=== PATIENT | male | born 1960 | race Caucasian/White ===

== ENCOUNTER 2025-06-20 08:22 | Outpatient (AMB) | payer BC, SELFPAY ==
--- NOTE | 2025-06-20 08:26 | MHC.OFFVIS ---
Intake Visit Reasons: 6 months Allergies No Known Allergies Allergy (Verified 06/20/25 08:34) Medication List - Last Reconciled 06/20/25 by Deepti Palumbo CNP atorvastatin 10 mg PO DAILY cyclobenzaprine 5 mg PO BID PRN diclofenac sodium 75 mg PO BID PRN lisinopril 10 mg PO DAILY HPI Comments Details: He was doing okay. Neck pain was okay with diclofenac and cyclobenzaprine as needed. Few episodes of brief weakness in both arms over the last 3 months, none in the last 2-3 weeks, occasionally ends with some discomfort in neck. No specific triggers. Occasional numbness in hands, but no pain.?Walking about 30 minutes/day. Feet and toes stinging was okay. Bought a condo in [place] and will be going there in 08/2025 for 6 months. Had episode of severe left neck pain at the end of 05/2024, better after prednisone and did some PT. Had MRI with degen disc disease. Dr Cooper suggested no surgery. Slight neck restriction. Doing neck exercises. Walks, playing pickleball. Right elbow and arm soreness since fall in Nov 2017. He has a history of cervical disc disease in 1997 with a C6 radiculopathy. [facility] Medical History (Updated 06/20/25 @ 08:33 by Deepti Palumbo CNP) Osteoarthritis Cervical disc disease Acquired spondylolisthesis Cervicalgia Carpal tunnel syndrome Review of Systems Const Denies chills, Denies daytime sleepiness, Denies difficulty sleeping, Denies fatigue, Denies fever(s), Denies frequent falls, Denies headache(s), Denies increased appetite, Denies poor appetite, Denies snoring, Denies weakness, Denies weight gain and Denies weight loss Eyes Denies loss of vision ENT Denies vertigo, Denies dizziness, Denies headache(s) and Reports neck pain Card Denies chest pain at rest, Denies chest pain with activity, Denies syncope, Denies leg edema, Denies palpitations, Denies dyspnea and Denies dyspnea on exertion Resp Denies cough, Denies dyspnea, Denies dyspnea on exertion and Denies snoring GI Denies abdominal pain, Denies constipation, Denies heartburn, Denies diarrhea and Denies nausea Denies urinary frequency, Denies urinary incontinence and Denies urinary urgency Musc Denies abnormal gait, Denies back pain, Denies myalgias, Reports arthralgias, Reports neck pain, Reports numbness and Reports tingling Neuro Denies abnormal gait, Denies vertigo, Denies dizziness, Denies syncope, Denies frequent falls, Denies headache(s), Denies lack of coordination, Denies loss of vision, Denies memory loss, Reports numbness, Denies Other visual disturbances, Denies restless legs, Denies seizure-like activity, Reports tingling, Denies paresthesias, Denies tremor(s) and Denies weakness Psych Denies anxiety, Denies depression, Denies auditory hallucinations, Denies memory loss and Denies visual hallucinations Endo Denies fatigue and Denies palpitations Physical Exam Const Other: General Appearance:? normal, in no acute distress. Heart:? S1, S2 normal, no murmurs. Lungs:? clear anteriorly and posteriorly. Musculoskeletal:? normal. Extremities:? no edema. Psych:? alert, oriented, cognitive function intact, cooperative with exam. Neuro Other: Abnormal Neurological Findings: 5-/5 L deltoid weakness. Mild tremor on sustained posture. Mental Status: alert and oriented X 3. Normal attention, orientation, memory, and affect. Cranial Nerves: Pupils are equal, round, and reactive to light. External ocular muscles are intact. Visual brian are full, no ptosis. Face is symmetrical, no facial weakness or droop. Facial sensations are normal. Tongue protrudes in midline. Palate elevates symmetrically. Shoulder shrugging is normal Motor Examination: As above, otherwise normal muscle tone, bulk and strength. No atrophy or fasciculations. No drift of the extended upper extremities. DTR 2+. Plantars are flexor. Sensory Exam: Normal light touch, temperature, pinprick, vibration, and joint-position sensations. Rhomberg sign is absent. Coordination: No ataxia. No titubation. Yvzype-qc-rhei, fvtw-bwzz-cpvo test, and rapid alternating movements were normal. Gait Exam: Within normal limits. Cerebellar Signs: Mvwmqr-jo-htmy and hfgd-ht-rdzq is normal. No dysdiadochokinesia. Extrapyramidal System: Tremor as above. No rigidity with normal facial expressions. No bradykinesia. No bradyphrenia. Normal arm swing and posture. No propulsion or retropulsion. Speech: Normal. No dysphasia or dysarthria. Results Reviewed Results Reviewed: 3/28/22 NCV/EMG UE Mild bilateral Carpal tunnel syndrome, right worse than left. Right is slightly worse and left is unchanged since last NCV/EMG done in 2014. Normal EMG in the right C5-T1 innervated muscles. Assessment & Plan Assessment & Plan (1) Cervical disc disease: Code(s): M50.90 - Cervical disc disorder, unspecified, unspecified cervical region Category: Medical Plan: Continue diclofenac sodium 75mg 1 tablet as needed with food twice a day for pain. Continue cyclobenzaprine 5mg 1 tablet as needed twice a day for muscle spasms/pain. MRI C-spine ordered. Lorazepam 1mg 1 tablet two hours before MRI, may repeat at time of test as needed #2 for 1 day. (2) Carpal tunnel syndrome: Code(s): G56.00 - Carpal tunnel syndrome, unspecified upper limb Category: Medical Qualifiers: Laterality: bilateral Qualified Code(s): G56.03 - Carpal tunnel syndrome, bilateral upper limbs (3) Cervicalgia: Code(s): M54.2 - Cervicalgia Category: Medical (4) Acquired spondylolisthesis: Code(s): M43.10 - Spondylolisthesis, site unspecified Category: Medical (5) Osteoarthritis: Code(s): M19.90 - Unspecified osteoarthritis, unspecified site Category: Medical Qualifiers: Osteoarthritis location: unspecified site Osteoarthritis type: unspecified Qualified Code(s): M19.90 - Unspecified osteoarthritis, unspecified site Plan . Orders: Orders MR cervical spine wo con Today M50.90 - Cervical disc disorder, unspecified, unspecified cervical region Medications: New lorazepam 1 mg orally 2 hours before test, may repeat at time of test if needed; 2 tabs 0RF Coding Level of Care Code Est Pt Level 4 (08551) Diagnoses Cervical disc disease M50.90 Bilateral carpal tunnel syndrome G56.03 Laterality: bilateral Cervicalgia M54.2 Acquired spondylolisthesis M43.10 Osteoarthritis, unspecified osteoarthritis type, unspecified site M19.90 Osteoarthritis location: unspecified site Osteoarthritis type: unspecified
--- OUTSIDE RECORDS SUMMARY | 2025-06-20 09:21 | XMS_ITS | Clinical Summary ---
Author Organization [facility] Address [address] [place] [id number] Care Team Providers Care Load Blocker Name Role Phone Long Hayes MD Primary Care Provider [phone] Surgical History Surgery Date Site/Laterality Comments COLONOSCOPY PROCEDURE:COLONOSCOPY KNEE SURGERY Bilateral PROCEDURE:KNEE SURGERY;COMMENT:SCOPE HERNIA REPAIR PROCEDURE:HERNIA REPAIR;COMMENT:SCROTAL LIPOMA RESECTION PROCEDURE:LIPOMA RESECTION;COMMENT:ARM TONSILLECTOMY PROCEDURE:TONSILLECTOMY TOTAL KNEE ARTHROPLASTY 11/15/2019 Right PROCEDURE:TOTAL KNEE ARTHROPLASTY;COMMENT:Procedure: REPLACEMENT TOTAL KNEE; Surgeon: Mike Rangel MD; Location: [facility] ([facility]); Service: Orthopedics; Laterality: Right; JOINT REPLACEMENT PROCEDURE:JOINT REPLACEMENT WRIST SURGERY PROCEDURE:WRIST SURGERY;COMMENT:pt denies wrist surgery (2021) TOTAL KNEE ARTHROPLASTY 02/11/2022 Left PROCEDURE:TOTAL KNEE ARTHROPLASTY;COMMENT:Procedure: REPLACEMENT TOTAL KNEE; Surgeon: Mike Rangel MD; Location: [facility] ([facility]); Service: Orthopedics; Laterality: Left; Medical History Medical History Date Comments Leukopenia DX:Leukopenia Osteoarthritis DX:Osteoarthriti s Peripheral neuropathy DX:Periphe ral neuropathy;COMMENT:CARPAL TUNNEL BILAT HANDS H/O degenerative disc disease DX :H/O degenerative disc disease Family History Medical History Relation Name Comments Cancer Brother 1 2 RENAL Heart disease Brother 1 2 Hyperlipidemia Brother 1 2 Early Brother 2 2 Cancer Mother BREAST Heart disease Mother Hypertension Mother Stroke Mother Down syndrome Sister 1 Hearing loss Sister 1 Hepatitis Sister 1 Cancer Sister 2 3 BREAST Hyperlipidemia Sister 2 3 Relation Name Status Comments Brother 1 2 Alive Brother 2 2 Father (Age 74) HYDROENCEH PHALITIS Mother (Age 85) STROKE Sister 1 (Age 40) DOWN SYNDR OME Sister 2 3 Alive Social History Tobacco Use Types Packs/Day Years Used Date Smoking Tobacco: Never Smokeless Tobacco: Never Alcohol Use Standard Drinks/Week Comments Yes 9 (1 standard drink = 0.6 oz pur e alcohol) Sex and Gender Information Value Date Recorded Sex Assigned at Not on file Legal Sex Male 9:30 PM EST Gender Identity Not on file Sexual Orientation Not on file Obstetrics History Last Filed Vital Signs Vital Sign Reading Time Taken Comments Blood Pressure 135/82 02/01/2022 9:51 AM EDT Sitting Left arm Pulse 72 02/01/2022 9:51 AM EDT Temperature - - Respiratory Rate - - Oxygen Saturation - - Inhaled Oxygen Concentration - - Weight 104 kg (229 lb) 02/01/2022 9:51 AM EDT Height 181 cm (5' 11.26 ) 02/01/2022 9: 51 AM EDT Body Mass Index 31.71 02/01/2022 9:51 AM EDT Plan of Treatment Health Maintenance Due Date Last Done Comments DTaP,Tdap,and Td Vaccines (1 - Tdap) 1978 Pneumococcal Vaccine: 50+ Years (1 of 1 - PCV) 2009 Zoster Vaccines (1 of 2) 2009 Abdominal Aortic Aneurysm (AAA) Screen 09/16/2022 Cholesterol Screening (Lipid Panel) 09/16/2022 Colorectal Cancer Screening: Colonoscopy 09/16/2022 Hepatitis C Screening 09/16/2022 Social Influencers of Health Screening 09/16/2022 Falls Risk Assessment 2024 Depression Screening 10/10/2024 COVID-19 Vaccine ( season) 2025 09/04/2024, 08/28/2021, 01/12/2021, Additional history exists Influenza Vaccine (#1) 2025 RSV Immunization Adult Patients (1 - 1-dose 75+ series) 2034 HIB Vaccines Aged Out No longer eligi ble based on patient's age to complete this topic HPV Vaccines Aged Out No longer eligi ble based on patient's age to complete this topic Hepatitis A Vaccines Aged Out No long er eligible based on patient's age to complete this topic Hepatitis B Vaccines Aged Out No long er eligible based on patient's age to complete this topic IPV Vaccines Aged Out No longer eligi ble based on patient's age to complete this topic MMR Vaccines Aged Out No longer eligi ble based on patient's age to complete this topic Meningococcal ACWY Vaccine Aged Out N o longer eligible based on patient's age to complete this topic Meningococcal B Vaccine Aged Out No l onger eligible based on patient's age to complete this topic RSV Immunization Patients Under 20 months Aged Out No longer eligible based on patient's age to complete this topic Varicella Vaccines Aged Out No longer eligible based on patient's age to complete this topic Medical Devices Implanted Type Area [place] Device Identifier Shelf Expiration Date Model / Serial / Lot Cement Simplex P Radiopaque Full Dose Bone 10 Pack - [id number] Implanted:Qty: 1 on 11/15/2019 by Mike Rangel MD Right: Knee [employer] 07/09/2021 6191-1-010 / / [id number] Cement Simplex P Radiopaque Full Dose Bone 10 Pack - [id number] Implanted:Qty: 1 on 11/15/2019 by Mike Rangel MD Right: Knee [employer] 07/09/2021 6191-1-010 / / [id number] Component Triathlon 7 Posterior Stabilized Cemented Femoral - [id number] Implanted:Qty: 1 on 11/15/2019 by Mike Rangel MD Right: Knee [employer] 02/06/2024 5515-F-702 / / [id number] Baseplate Triathlon 8 Primary Cemented Tibial Knee - [id number] Implanted:Qty: 1 on 11/15/2019 by Mike Rangel MD Right: Knee [employer] 10/31/2023 5520-B-800 / / [id number] Insert Triathlon 8 13mm Posterior Stabilized Bearing X3 - [id number] Implanted:Qty: 1 on 11/15/2019 by Mike Rangel MD Right: Knee [employer] 10/17/2022 5532-G-813 / / [id number] Component Triathlon 10mm 35mm Symmetric X3 Ptlar Knee - [id number] Implanted:Qty: 1 on 11/15/2019 by Mike Rangel MD Right: Knee [employer] 12/24/2023 5551-G-350 / / [id number] Peg Triathlon Modular Fix Distal Femur Knee - [id number] Implanted:Qty: 1 on 11/15/2019 by Mike Rangel MD Right: Knee [employer] 07/01/2024 5575-X-000 / / [id number] Knee Fem Ps Trthln Sz 7 Lt Stry-Howm 7267-[id number] Implanted:Qty: 1 on 02/11/2022 by Mike Rangel MD Left: Knee [employer] [id number] 10/16/2023 5515-F-701 / / [id number] Knee Tib Base Plt Trthln Sz 8 Stry-Howm 6040-[id number]-[id number] Implanted:Qty: 1 on 02/11/2022 by Mike Rangel MD Left: Knee [employer] [id number] 06/09/2026 5520-B-800 / / [id number] Knee Tib Insrt Ps X3 8x13 Stry-Howm 6142-E-[id number] Implanted:Qty: 1 on 02/11/2022 by Mike Rangel MD Left: Knee [employer] [id number] 10/24/2022 5532-G-813 / / [id number] Knee Pat Asymmetric 18j16as Stry-Howm 5133-P-880-E-2 [id number] Implanted:Qty: 1 on 02/11/2022 by Mike Rangel MD Left: Knee [employer] [id number] 09/27/2026 5551-G-350 -E / / [id number] Peg Fix Femoral Distal Stry-Howm 7082-C-[id number] 704 Implanted:Qty: 1 on 02/11/2022 by Mike Rangel MD Left: Knee [employer] [id number] 05/18/2026 5575-X-000 / / [id number] Cement Bone Surg Simplex Radiopq Stry-Howm [id number] 092 Implanted:Qty: 1 on 02/11/2022 by Mike Rangel MD Left: Knee [employer] 05/09/2024 6191-1-010 / / Description:LOT # [id number] Cement Bone Surg Simplex Radiopq Stry-How [id number] 092 Implanted:Qty: 1 on 02/11/2022 by Mike Rangel MD Left: Knee [employer] 05/09/2024 6191-1-010 / / Description:LOT # [id number] Care Teams Load Blocker Relationship Specialty Start Date End Date Long Hayes MD [address] [place] [address] PCP - General Internal Medicine 01/03/18
--- OUTSIDE RECORDS SUMMARY | 2025-06-20 09:21 | XMS_ITS | Clinical Summary ---
Author Organization [facility] Address [address] [place] [id number] Phone Care Team Providers Care Transliterator Name Role Phone Unavailable Primary Care Provider Unavailabl e Social History Tobacco Use Types Packs/Day Years Used Date Smoking Tobacco: Never Assessed Education Answer Date Recorded Are you interested in more education? Not on sri e 02/05/2023 Are you concerned about learning? Not on file 02/05/2023 No 02/05/2023 No 02/05/2023 Digital Access Answer Date Recorded No 03/08/2023 No 03/08/2023 Reliable internet access at home? Not on file 03/08/2023 Device with a working camera? Not on file Sex and Gender Information Value Date Recorded Sex Assigned at Not on file Legal Sex Male 3:37 PM EDT Gender Identity Not on file Sexual Orientation Not on file Plan of Treatment Not on file Medical Devices Not on file Additional Source Comments The information contained in this document represents components of the legal health record. It is not the complete legal health record.[facility]
--- OUTSIDE RECORDS SUMMARY | 2025-06-20 09:21 | XMS_ITS | Clinical Summary ---
Author Organization [facility] Address [address] [place], [place] [id number] Care Team Providers Care Manager Managed Care Name Role Phone Long Hayes MD Primary Care Provider [phone] Allergies Active Allergy Reactions Criticality Noted Date Comments Pollen Extract Low 12/16/2021 Tree pollen Medications Medication Sig Dispensed Refills Start Date End Date Status acetaminophen (TYLENOL EXTRA STRENGTH) 500 MG tablet Take 2 tablets (1,000 mg total) by mouth every 8 (eight) hours. 90 tablet 0 11/16/2019 Active amoxicillin (AMOXIL) 500 MG tablet Take 4 tabs 1 hour prior to dental appointment 20 tablet 3 12/16/2021 Active Multiple Vitamins-Minerals (Centrum Silver Adult 50+) TABS Take by mouth daily. 0 Active aspirin EC 81 MG EC tablet Take 1 tablet (81 mg total) by mouth 2 (two) times a day after meals. 84 tablet 0 02/12/2022 Active meloxicam (MOBIC) 15 MG tablet Take 1 tablet (15 mg total) by mouth daily. 30 tablet 0 02/12/2022 Active methocarbamol (ROBAXIN) 750 MG tablet Take 1 tablet (750 mg total) by mouth every 6 (six) hours as needed. 56 tablet 0 02/12/2022 Active oxyCODONE (ROXICODONE) 5 MG immediate release tablet Take 1 tablet (5 mg total) by mouth every 4 (four) hours as needed. 40 tablet 0 02/12/2022 Active senna-docusate (PERICOLACE) 8.6-50 MG Take 1 tablet by mouth 2 (two) times a day. 14 tablet 0 02/12/2022 Active Active Problems Problem Noted Date Diagnosed Date Right sided sciatica 07/22/2020 Arthritis of right knee 11/15/2019 Arthritis of knee, right 07/24/2019 Immunizations Name Administration Dates Next Due Covid-19 (Moderna 12+) 100mcg/0.5mL dosage 08/28,01/12/2021,12/15/2020 Family History Medical History Relation Name Comments [...] Information Value Date Recorded Sex Assigned at Male 10/19/2019 1:56 PM EST Gender Identity Male 10/19/2019 1:56 PM EST Sexual Orientation Straight 11/15/2019 6: 26 AM EST Job Start Date Occupation Industry Not on file Not on file Not on file Last Filed Vital Signs Vital Sign Reading Time Taken Comments Blood Pressure 124/75 02/12/2022 7:34 AM EDT Pulse 96 02/12/2022 7:34 AM EDT Temperature 36.6 C (97.8 F) 02/12/2022 7:34 AM EDT Respiratory Rate 18 02/12/2022 7:34 AM EDT Oxygen Saturation 96% 02/12/2022 7:34 AM EDT Inhaled Oxygen Concentration - - Weight 103.4 kg (228 lb) 02/11/2022 9:28 AM EDT Height 182.9 cm (6') 02/11/2022 9:28 AM EDT Body Mass Index 30.92 02/11/2022 9:28 AM EDT Plan of Treatment Health Maintenance Due Date Last Done Comments Hepatitis C Screening 1959 Depression Screening 1971 BMI Counseling 1977 Preventative Health Evaluation 1977 DTap / Tdap / Td (1 - Tdap) 1978 Colon Cancer Screening (Colonoscopy) 2004 Shingrix-Zoster Vaccine (1 o f 2) 2009 Fall Risk Assessment 2024 Pneumococcal Vaccine (1 of 1 - PCV) 2024 COVID-19 Vaccine (4 - 2024-2 6 season) 2025 08/28/2021, 01/12/2021, 12/15/2020 Influenza Vaccine (#1) 2025 RSV Adult > 60+ Yrs or (1 - 1-dose 75+ series) 2034 Hepatitis B Vaccines Aged Out No long er eligible based on patient's age to complete this topic RSV Ped < 20 months Aged Out No longe r eligible based on patient's age to complete this topic Medical Devices Implanted Type Area [place] Device Identifier Shelf Expiration Date Model / Serial / Lot Cement Simplex P Radiopaque Full Dose Bone 10 Pack - [id number] - [id number] Implanted:Qty: 1 on 11/15/2019 by Mike Rangel [place] [facility] Right: Knee [employer] 07/09/2021 6191-1-010 / / [id number] Cement Simplex P Radiopaque Full Dose Bone 10 Pack - 215765 - [id number] Implanted:Qty: 1 on 11/15/2019 by Mike Rangel MD at [facility] Right: Knee [employer] 07/09/2021 6191-1-010 / / [id number] Component Triathlon 7 Posterior Stabilized Cemented Femoral - 317242 - [id number] Implanted:Qty: 1 on 11/15/2019 by Mike Rangel MD at [facility] Right: Knee [employer] 02/06/2024 5515-F-702 / / [id number] Baseplate Triathlon 8 Primary Cemented Tibial Knee - 386264 - [id number] Implanted:Qty: 1 on 11/15/2019 by Mike Rangel MD at [facility] Right: Knee [employer] 10/31/2023 5520-B-800 / / [id number] Insert Triathlon 8 13mm Posterior Stabilized Bearing X3 - [id number] - [id number] Implanted:Qty: 1 on 11/15/2019 by Mike Rangel MD at [facility] Right: Knee [employer] 10/17/2022 5532-G-813 / / [id number] Component Triathlon 10mm 35mm Symmetric X3 Ptlar Knee - [id number] - [id number] Implanted:Qty: 1 on 11/15/2019 by Mike Rangel MD at [facility] Right: Knee [employer] 12/24/2023 5551-G-350 / / [id number] Peg Triathlon Modular Fix Distal Femur Knee - 225860 - [id number] Implanted:Qty: 1 on 11/15/2019 by Mike Rangel MD [facility] Right: Knee [employer] 07/01/2024 5575-X-000 / / [id number] Knee Fem Ps Trthln Sz 7 Lt Stry-Howm 5084-K-[id number] 743 - [id number] Implanted:Qty: 1 on 02/11/2022 by Mike Rangel MD at [facility] Left: Knee [employer] [id number] 10/16/2023 5515-F-701 / / [id number] Knee Tib Base Plt Trthln Sz 8 Stry-Howm 4005-W-588-631 519 - [id number] Implanted:Qty: 1 on 02/11/2022 by Mike Rangel MD at [facility] Left: Knee [employer] [id number] 06/09/2026 5520-B-800 / / [id number] Knee Tib Insrt Ps X3 8x13 Stry-Howm 3077-Y-[id number] 545 - [id number] Implanted:Qty: 1 on 02/11/2022 by Mike Rangel MD at [facility] Left: Knee [employer] [id number] 10/24/2022 5532-G-813 / / [id number] Knee Pat Asymmetric [id number] Stry-Howm 9025-S-191-E-2 48551 - [id number] Implanted:Qty: 1 on 02/11/2022 by Mike Rangel MD [place] [facility] Left: Knee [employer] [id number] 09/27/2026 5551-G-350 -E / / [id number] Peg Fix Femoral Distal Stry-How 2920-T-799-547 704 - [id number] Implanted:Qty: 1 on 02/11/2022 by Mike Rangel MD [place] [facility] Left: Knee [employer] [id number] 05/18/2026 5575-X-000 / / [id number] Cement Bone Surg Simplex Radiopq Stry-How 2104-9-880-114 092 - [id number] Implanted:Qty: 1 on 02/11/2022 by Mike Rangel MD at [facility] Left: Knee [employer] 05/09/2024 6191-1-010 / / Description:LOT # [id number] Cement Bone Surg Simplex Radiopq Stry-How [id number] 092 - [id number] Implanted:Qty: 1 on 02/11/2022 by Mike Rangel MD at [facility] Left: Knee [employer] 05/09/2024 6191-1-010 / / Description:LOT # [id number] Advance Directives For more information, please contact: [phone] Latest Code Status on File Code Status Date Activated Date Inactivated Comments Full Code 02/11/2022 3:12 PM 02/12/2022 5:30 PM This co de status was ascertained in the following way: discussion with patient . Code Status History Code Status Date Activated Date Inactivated Comments Full Code 02/11/2022 9:16 AM 02/11/2022 3:12 PM This co de status was ascertained in the following way: discussion with patient . Full Code 11/15/2019 8:35 AM 11/16/2019 6:28 PM This co de status was ascertained in the following way: discussion with patient . Full Code 11/15/2019 5:17 AM 11/15/2019 8:34 AM This co de status was ascertained in the following way: discussion with patient . Care Teams Manager Managed Care Relationship Specialty Start Date End Date Long Hayes MD [address] [place] [id number] PCP - General Internal Medicine 01/03/18
== END 2025-06-20 08:55 | disposition home or self-care (01) ==
LOC: HO.HSM 08:22
PROVIDERS: PCP Internal Medicine; Referring Provider Internal Medicine; Visit Provider Registered Nurse
DX: M50.90 Cervical disc disorder, unspecified, unspecified cervical region (principal); G56.03 Carpal tunnel syndrome, bilateral upper limbs; M43.10 Spondylolisthesis, site unspecified; M19.90 Unspecified osteoarthritis, unspecified site
CPT/HCPCS: 99214

== ENCOUNTER → 2025-07-30 07:42 | Outpatient (BNV) | payer MEDICARE, SELFPAY | PROVIDERS: PCP Internal Medicine; Visit Provider Radiology Diagnostic Radiology | DX: M47.812 Spondylosis without myelopathy or radiculopathy, cervical region (principal); M40.202 Unspecified kyphosis, cervical region; S14.125A Central cord syndrome at C5 level of cervical spinal cord, initial encounter; M48.02 Spinal stenosis, cervical region | CPT/HCPCS: 72141 ==

== ENCOUNTER 2025-07-30 07:53 | Outpatient (REF) | payer MEDICARE, SELFPAY ==
--- OUTSIDE RECORDS SUMMARY | 2024-06-22 09:50 | XMS_ITS ---
Author Organization [facility] Address [address] [place], [place] [id number] Care Team Providers Care Plant Pathologist Name Role Phone SILVERIO REICH Primary Care Provider REASON FOR VISIT refax rx MEDICATIONS Medication SIG (Take, Route, Frequency, Duration) Notes Start Date End Date Status Atorvastatin Calcium 10 MG 1 tablet Oral ly Once a day for 90 days Active Encounters Encounter Location Date Provider Diagnosis [address] [address] 06/22/2024 SILVERIO REICH PLAN OF TREATMENT Medication Medication Name Sig Start Date Stop Date Notes Atorvastatin Calcium 10 MG 1 tablet Oral ly Once a day for 90 days Next Appt Details Provider Name:SILVERIO REICH, 1 10:15:00 AM, [address] [place] [address], [phone],
--- OUTSIDE RECORDS SUMMARY | 2024-11-27 03:59 | XMS_ITS ---
Author Organization [facility] Address [address] [place], [place] [id number] Care Team Providers Care Inventory Planner Name Role Phone SILVERIO REICH Primary Care Provider REASON FOR VISIT lab orders Encounters Encounter Location Date Provider Diagnosis [facility] [address] [place] [phone] 11/27/2024 SILVERIO REICH Routine medical exam Z00.00 ; Elevated cholesterol E78.00 ; Leukopenia, unspecified type D72.819 ; Hematuria, unspecified type R31.9 ; Osteoarthritis, localized, knee M17.10 ; Vitamin D deficiency E55.9 and Urinary symptom or sign R39.9 ASSESSMENTS Encounter Date Diagnosis Assessment Notes Treatment Notes Treatment Clinical Notes Section Notes 11/27/2024 Routine medical exam (ICD-10 - Z00.00) 11/27/2024 Elevated cholesterol (ICD-10 - E78.00) 11/27/2024 Leukopenia, unspecified type (ICD-10 - D72.819) 11/27/2024 Hematuria, unspecified type (ICD-10 - R31.9) 11/27/2024 Osteoarthritis, localized, knee (ICD-10 - M17.10) 11/27/2024 Vitamin D deficiency (ICD-10 - E55.9) 11/27/2024 Urinary symptom or sign (ICD-10 - R39.9) PLAN OF TREATMENT Next Appt Details Provider Name:SILVERIO REICH, 1 10:15:00 AM, [address] [place], [address],
--- OUTSIDE RECORDS SUMMARY | 2024-12-03 05:00 | XMS_ITS ---
Author Organization [facility] Address [address] [place], [place] [id number] Care Team Providers Care Ice Skating Coach Name Role Phone SILVERIO REICH Primary Care Provider ALLERGIES No Known Allergies REASON FOR VISIT WELCOME TO MEDICARE MEDICATIONS Medication SIG (Take, Route, Frequency, Duration) Notes Start Date End Date Status Diclofenac Sodium 75 MG 1 tablet as need ed Orally Twice a day prn 5-7 per week Active Atorvastatin Calcium 10 MG 1 tablet Orally Once a day Active Advil 200 MG 1 tab(s) orally as needed only prn Active Aspirin 325 MG 1 tab(s) orally prn prn Active Multivitamin - 1 cap(s) orally once a day Active Vitamin D3 25 MCG 1 tab(s) orally once a day 09/24/2021 Active VITAL SIGNS Height 70 in 12/03/2024 Weight 229 lbs 12/03/2024 Blood pressure systolic 124 mm Hg 12/03/19 25 Blood pressure diastolic 84 mm Hg 025 BMI 32.85 kg/m2 12/03/2024 Encounters Encounter Location Date Provider Diagnosis [facility] [address] [place] [address] 12/03/2024 SILVERIO REICH Reducible umbilical hernia K42.9 ; Right groin pain R10.31 ; Elevated BP without diagnosis of hypertension R03.0 ; Osteoarthritis, localized, knee M17.10 ; Chest discomfort R07.89 ; Leukopenia, unspecified type D72.819 ; Elevated cholesterol E78.00 ; Hearing loss, unspecified hearing loss type, unspecified laterality H91.90 ; Vitamin D deficiency E55.9 ; RLS (restless legs syndrome) G25.81 and Abnormal EKG R94.31 ASSESSMENTS Encounter Date Diagnosis Assessment Notes Treatment Notes Treatment Clinical Notes Section Notes 12/03/2024 Reducible umbilical hernia (ICD-10 - K42.9) declines surgery eval 12/03/2024 Right groin pain (ICD-10 - R10.31) resolved 12/03/2024 Elevated BP without diagnosis of hypertension (ICD-10 - R03.0) no sx; check BP at home weekly and bring in log; low sodium diet reviewed 12/03/2024 Osteoarthritis, localized, knee (ICD-10 - M17.10) s/p TKA 12/03/2024 Chest discomfort (ICD-10 - R07.89) resolved; f/u with Dr Bullock-brissa notes 12/03/2024 Leukopenia, unspecified type (ICD-10 - D72.819) recheck cbc serially; pt reports negative Dr Diallo evhenri 12/03/2024 Elevated cholesterol (ICD-10 - E78.00) low fat/cholesterol diet reviewed 12/03/2024 Hearing loss, unspecified hearing loss type, unspecified laterality (ICD-10 - H91.90) declines ENT eval 12/03/2024 Vitamin D deficiency (ICD-10 - E55.9) check vit d serially 12/03/2024 RLS (restless legs syndrome) (ICD-10 - G25.81) offered sleep study vs trial of gabapentin-decl radha both 12/03/2024 Abnormal EKG (ICD-10 - R94.31) ?anterior Q; f/u with cardiology 12/03/2024 Other pt declines checking hiv, hep c; RACHEL monthly; safe sex practice/sunscr een/seatbelt/he lmet/condom use reviewed; see ophthy at least once q24 months/dentist at least once [id number]; exercise 4-5x/wk and follow healthy diet PLAN OF TREATMENT Medication Medication Name Sig Start Date Stop Date Notes Atorvastatin Calcium 10 MG 1 tablet Orally Once a day Vitamin D3 25 MCG 1 tab(s) orally once a day 09/24/2021 Treatment Notes Assessment Notes Reducible umbilical hernia declines surg alden eval Right groin pain resolved Elevated BP without diagnosi s of hypertension no sx; check BP at home weekly and bring in log; low sodium diet reviewed Osteoarthritis, localized, knee s/p TKA Chest discomfort resolved; f/u with Merlyn Bullock-brissa notes Leukopenia, unspecified type recheck cbc serially; pt reports negative Dr Imani ahumada Elevated cholesterol low fat/cholesterol diet reviewed Hearing loss, unspecified he aring loss type, unspecified laterality declines ENT eval Vitamin D deficiency check vit d seriall y RLS (restless legs syndrome) offered sle ep study vs trial of gabapentin-declines both Abnormal EKG ?anterior Q; f/u wit h cardiology Other pt declines checking hiv, hep c; RACHEL monthly; safe sex practice/sunscreen/seatbelt/helmet/condom use reviewed; see ophthy at least once q24 months/dentist at least once [id number]; exercise 4-5x/wk and follow healthy diet Next Appt Details Follow Up: prevnar 29/03 [facility], Reason: Provider Name:SILVERIO REICH, 1 10:15:00 AM, [address] [place] [address], [phone], History and Physical Notes * HPI (History of Present Illness) Category Sub-Category Detail Notes Category Not es Hypertension BP @ home good Pt is here for intial Welcome to Medicare visit/f/u Trouble with meds chest pain Low salt diet following Exercise weakness vision change swelling of legs hypertension for follow-up palpitations fatigue dyspnea Depression Screening PHQ-2 (2015 Edition) Little interest or pleasure in doing things?: Not at all Feeling down, depressed, or hopeless?: N ot at all Total Score: 0 Physical Examination Category Sub-Category Detail Notes Section Note s HEENT Ear canals: patent, no lesions pt decli kirk riky Head: normocephalic, atrau matic Sclera: nonicteric, noninjec myra Pupils: ERRL EOM: intact Oral cavity: normal Nose: normal Pharynx: normal, no exudate, no lesion Sinuses nontender Left tympanic membrane normal landmarks and light reflex, intact Right tympanic membrane: normal landmark s and light reflex, intact NECK Thyroid: not enlarged, no nodules pt declines riky Cervical lymph nodes: no adenopathy Jugular venous distension: absent Carotid: no bruit, 2+ pulses Neck: supple with full ROM EXTREMITIES Edema: none pt declines riky Cyanosis: none Pulses: 2+ bilateral Clubbing: none Brunilda's sign negative, no calf te nderness/cord BACK Spine: no spinal tenderness pt dec lines riky CVA tenderness: none CHEST Shape and expansion: normal pt decl radha riky Breath sounds: clear to auscultatio n bilaterally; no rubs, wheezes, crackles or dullness HEART Rhythm: regular pt declines riky Murmurs: none Heart sounds: normal S1 & S2, no S 3/S4 Rubs: none Rate: regular ABDOMEN Shape: non-distended, soft pt decl radha riky Guarding: no Tenderness: none Masses: none Liver, Spleen: not enlarged Sounds: normal, active Rebound tenderness: no NEUROLOGICAL Sensory: normal light touch/pinprick/ proprioception/vibratory pt declines riky Motor: 5/5 strength proxima lly and distally in all 4 extremities Reflexes: 2/4 bilaterally uppe r and lower extremities symmetrical Cranial nerves: CN 2-12 intact Mental status: alert and oriented t o person, place and time Babinski: plantar Tremor: none Fundoscopic: Cerebellar: normal gait; normal FTN, JARED, HTS; negative Romberg/pronator drift MUSCULOSKELETAL Wrists: no synovitis pt declines riky Hips: normal Ankles: normal Shoulders: normal Feet: normal Elbows: normal Hands: no synovitis Knees: normal GENITOURINARY - MALE Penis: normal male circumci sed phallus pt declines riky Testicles: normal Hernia: none Scrotum normal without mass or tenderness DERMATOLOGY Moles: benign appearing pt decline s riky GENERAL General Appearance: well nourish ed, well developed male in no apparent distress appearing stated age pt declines riky PSYCHOLOGY Grooming: appropriate pt declines riky Eye contact: normal Mood: euthymic Affect appropriate LYMPHATICS Cervical nodes: not enlarged pt declines riky Axillary nodes: not enlarged Inguinal nodes: not enlarged Supraclavicular none palpable
--- OUTSIDE RECORDS SUMMARY | 2024-12-03 05:39 | XMS_ITS ---
Author Organization [facility] Address [address] [place], [place] [id number] Care Team Providers Care Agency Director Name Role Phone ISLVERIO REICH Primary Care Provider REASON FOR VISIT (awf)Dr Bullock note Encounters Encounter Location Date Provider Diagnosis [address] [address] 12/03/2024 SILVERIO REICH PLAN OF TREATMENT Next Appt Details Provider Name:SILVERIO REICH, 1 10:15:00 AM, [address] [place], [address],
--- OUTSIDE RECORDS SUMMARY | 2024-12-03 06:00 | XMS_ITS ---
Author Organization [facility] Address [address] [place], [place] [id number] Care Team Providers Care Machinist Outside Name Role Phone SILVERIO REICH Primary Care Provider [phone] [place], NUR[facility] Unavailable [phone] REASON FOR VISIT 28/prevnar 20 IMMUNIZATIONS Vaccine Route Administration Date Status Comme nts [id number] IM Intramuscular 12/03/2024 Administered Encounters Encounter Location Date Provider Diagnosis [address] [address] 12/03/2024 [facility] [place] Encounter for immunization Z23 ASSESSMENTS Encounter Date Diagnosis Assessment Notes Treatment Notes Treatment Clinical Notes Section Notes 12/03/2024 Encounter for immunization (ICD-10 - Z23) Pneumococcal Conjugate 20 given today. Patient counseled and given VIS sheet for review. PLAN OF TREATMENT Treatment Notes Assessment Notes Encounter for immunization Pneumococcal Conjugate 20 given today. Patient counseled and given VIS sheet for review. Next Appt Details Follow Up: prn, Reason: Provider Name:SILVERIO REICH, 1 10:15:00 AM, [address] [place] [address], [phone],
--- OUTSIDE RECORDS SUMMARY | 2024-12-03 07:45 | XMS_ITS ---
Author Organization [facility] Address [address] [place], [place] [id number] Care Team Providers Care Hairspring Studder Name Role Phone SILVERIO REICH Primary Care Provider ALLERGIES No Known Allergies REASON FOR VISIT awv MEDICATIONS Medication SIG (Take, Route, Frequency, Duration) Notes Start Date End Date Status Multivitamin - 1 cap(s) orally once a day Active Advil 200 MG 1 tab(s) orally as needed only prn Active Aspirin 325 MG 1 tab(s) orally prn prn Active Atorvastatin Calcium 10 MG 1 tablet Orally Once a day Active Vitamin D3 25 MCG 1 tab(s) orally once a day 09/24/2021 Active Diclofenac Sodium 75 MG 1 tablet as need ed Orally Twice a day prn 5-7 per week Active Encounters Encounter Location Date Provider Diagnosis [facility] [address] [place] [address] 12/03/2024 SILVERIO REICH Medicare annual wellness visit, initial Z00.00 ASSESSMENTS Encounter Date Diagnosis Assessment Notes Treatment Notes Treatment Clinical Notes Section Notes 12/03/2024 Medicare annual wellness visit, initial (ICD-10 - Z00.00) Health Risk Assessment form reviewed with patient and scanned into chart PLAN OF TREATMENT Treatment Notes Assessment Notes Medicare annual wellness visit, initial Health Risk Assessment form reviewed with patient and scanned into chart Next Appt Details Follow Up: prn, Reason: Provider Name:SILVERIO REICH, 1 10:15:00 AM, [address] [place], [address], History and Physical Notes * HPI (History of Present Illness) Category Sub-Category Detail Notes Category Not es General Pt is here for AWV
--- OUTSIDE RECORDS SUMMARY | 2025-06-05 04:30 | XMS_ITS ---
Author Organization [facility] Address [address] [place], [place] [id number] Care Team Providers Care Ems Manager Name Role Phone SILVERIO REICH Primary Care Provider ALLERGIES No Known Allergies REASON FOR VISIT 06/04 mo f/u MEDICATIONS Medication SIG (Take, Route, Frequency, Duration) Notes Start Date End Date Status Atorvastatin Calcium 10 MG TAKE 1 TABLET BY MOUTH EVERY DAY for 90 Active Vitamin D3 25 MCG 1 tab(s) orally once a day 09/24/2021 Active Advil 200 MG 1 tab(s) orally as needed only prn Active Multivitamin - 1 cap(s) orally once a day Active Aspirin 325 MG 1 tab(s) orally prn prn Active Lisinopril 10 MG 1 tablet Orally Once a day for 30 day(s) 06/05/2025 Active Diclofenac Sodium 75 MG 1 tablet as need ed Orally Twice a day prn 5-7 per week Active SOCIAL HISTORY Tobacco Use: Social History Observation Description Date Details (start date - stop date) Never Smoker NA - NA Sex Assigned At : Social History Observation Description Sex Assigned At Unknown Smoking Question Answer Notes Are you a: never smoker Section Notes: never smoked VITAL SIGNS Height 70 in 06/05/2025 Weight 223 lbs 06/05/2025 Blood pressure systolic 130 mm Hg 06/05/20 25 Blood pressure diastolic 70 mm Hg 025 BMI 31.99 kg/m2 06/05/2025 Encounters Encounter Location Date Provider Diagnosis [facility] [address] [place] [address] 06/05/2025 SILVERIO REICH Reducible umbilical hernia K42.9 ; Pain, joint, shoulder, left M25.512 ; Elevated BP without diagnosis of hypertension R03.0 ; Osteoarthritis, localized, knee M17.10 ; Leukopenia, unspecified type D72.819 ; Elevated cholesterol E78.00 ; Hearing loss, unspecified hearing loss type, unspecified laterality H91.90 ; Vitamin D deficiency E55.9 ; RLS (restless legs syndrome) G25.81 and Abnormal EKG R94.31 ASSESSMENTS Encounter Date Diagnosis Assessment Notes Treatment Notes Treatment Clinical Notes Section Notes 06/05/2025 Reducible umbilical hernia (ICD-10 - K42.9) declines surgery eval 06/05/2025 Pain, joint, shoulder, left (ICD-10 - M25.512) prob adhesive capsulitsi vs tendonitis; will do x-ray and plan PT/ortho eval 06/05/2025 Elevated BP without diagnosis of hypertension (ICD-10 - R03.0) no sx; check BP at home weekly and bring in log; low sodium diet reviewed; side effects, risks, and benefits of medication reviewed 06/05/2025 Osteoarthritis, localized, knee (ICD-10 - M17.10) s/p TKA 06/05/2025 Leukopenia, unspecified type (ICD-10 - D72.819) recheck cbc serially; pt reports negative Dr Diallo evhenri 06/05/2025 Elevated cholesterol (ICD-10 - E78.00) low fat/cholesterol diet reviewed 06/05/2025 Hearing loss, unspecified hearing loss type, unspecified laterality (ICD-10 - H91.90) declines ENT eval 06/05/2025 Vitamin D deficiency (ICD-10 - E55.9) check vit d serially 06/05/2025 RLS (restless legs syndrome) (ICD-10 - G25.81) offered sleep study vs trial of gabapentin-decl radha both 06/05/2025 Abnormal EKG (ICD-10 - R94.31) ?anterior Q; f/u with cardiology 06/05/2025 Other PLAN OF TREATMENT Medication Medication Name Sig Start Date Stop Date Notes Lisinopril 10 MG 1 tablet Orally Once a day for 30 day(s) 06/05/2025 Treatment Notes Assessment Notes Reducible umbilical hernia declines surg alden eval Pain, joint, shoulder, left prob adhesiv e capsulitsi vs tendonitis; will do x-ray and plan PT/ortho eval Elevated BP without diagnosi s of hypertension no sx; check BP at home weekly and bring in log; low sodium diet reviewed; side effects, risks, and benefits of medication reviewed Osteoarthritis, localized, knee s/p TKA Leukopenia, unspecified type recheck cbc serially; pt reports negative Dr Imani ahumada Elevated cholesterol low fat/cholesterol diet reviewed Hearing loss, unspecified he aring loss type, unspecified laterality declines ENT eval Vitamin D deficiency check vit d seriall y RLS (restless legs syndrome) offered sle ep study vs trial of gabapentin-declines both Abnormal EKG ?anterior Q; f/u wit h cardiology Next Appt Details Follow Up: 4 Weeks/FBW, Reas on: Provider Name:SILVERIO REICH, 1 10:15:00 AM, [address] [place] [address], [phone], History and Physical Notes * HPI (History of Present Illness) Category Sub-Category Detail Notes Category Not es Shoulder/Upper arm trauma fall radiation of pain tingling redness shoulder pain Left, diffuse, not w ell localised weakness forearm pain exacerbating factors throwing a ball relieving factors upper arm pain character sharp radiation swelling numbness Hypertension BP @ home ok, but occ high Trouble with meds chest pain Low salt diet following Exercise weakness vision change swelling of legs hypertension for follow-up palpitations fatigue dyspnea Physical Examination Category Sub-Category Detail Notes Section Note s HEENT Head: normocephalic, atraumatic EOM: intact NECK Neck: supple, normal ROM, no lymph adenopathy EXTREMITIES Edema: none Cyanosis: none Pulses: 2+ bilateral Clubbing: none BACK Spine: no tenderness to palpation CVA tenderness: none CHEST Breath sounds: clear to auscultation Rales: none Wheezes: none HEART Rhythm: regular Murmurs: none Heart sounds: normal S1 & S2, no S 3/S4 Rate: regular ABDOMEN Shape: normal, nondistended Guarding: no Tenderness: none Masses: none Liver, Spleen: not enlarged Sounds: normal, active Rebound tenderness: none NEUROLOGICAL Mental status: alert and oriented to pers on, place and time MUSCULOSKELETAL Shoulders: left shoudler wi th slightly decreased ROM with abduction limited by pain; no tenderness, swelling, redness, deformity, warmth, crepitus GENERAL General Appearance: well nourish ed, no apparent distress, well developed
--- OUTSIDE RECORDS SUMMARY | 2025-06-07 13:21 | XMS_ITS ---
Author Organization [facility] Address [address] [place], [place] [id number] Care Team Providers Care Cut Filer Name Role Phone SILVERIO REICH Primary Care Provider [phone] REASON FOR VISIT Test results Encounters Encounter Location Date Provider Diagnosis [address] [address] 06/07/2025 SILVERIO REICH PLAN OF TREATMENT Next Appt Details Provider Name:SILVERIO REICH, 1 10:15:00 AM, [address] [place], [address],
--- OUTSIDE RECORDS SUMMARY | 2025-06-30 15:27 | XMS_ITS ---
Author Organization [facility] Address [address], [place] [id number] Care Team Providers Care Doubler Operator Name Role Phone SILVERIO REICH Primary Care Provider [phone] REASON FOR VISIT lisinopril MEDICATIONS Medication SIG (Take, Route, Fr equency, Duration) Notes Start Date End Date Status Lisinopril 10 MG 1 tablet Orally Once a day for 90 days 06/05/2025 Active Encounters Encounter Location Date Provider Diagnosis [facility] [address] [place] [address] 06/30/2025 SILVERIO REICH Elevated BP without diagnosis of hypertension R03.0 ASSESSMENTS Encounter Date Diagnosis Assessment Notes Treatment Notes Treatment Clinical Notes Section Notes 06/30/2025 Elevated BP without diagnosis of hypertension (ICD-10 - R03.0) PLAN OF TREATMENT Medication Medication Name Sig Start Date Stop Date Notes Lisinopril 10 MG 1 tablet Orally Once a day for 90 days Next Appt Details Provider Name:SILVERIO REICH, 1 10:15:00 AM, [address] [place], [address],
--- OUTSIDE RECORDS SUMMARY | 2025-07-05 04:45 | XMS_ITS ---
Author Organization [facility] Address [address], [place] [id number] Care Team Providers Care Septic Tank Cleaner Name Role Phone SILVERIO REICH Primary Care Provider ALLERGIES No Known Allergies REASON FOR VISIT 4 weeks, pt will wait july for flu vaccine MEDICATIONS Medication SIG (Take, Route, Frequency, Duration) Notes Start Date End Date Status Multivitamin - 1 tablet orally once a day Active Aspirin 325 MG 1 tablet orally Once a day prn Active Vitamin D3 25 MCG 1 tab(s) orally once a day 09/24/2021 Active Advil 200 MG 1 tablet with food or milk as needed orally once a day Active Atorvastatin Calcium 10 MG 1 tablet orally Once a day Active Lisinopril 10 MG 1 tablet Orally Once a day for 90 days 06/05/2025 Active Diclofenac Sodium 75 MG 1 [...] a: never smoker Section Notes: never smoked PROBLEMS Problem Type ICD Code Onset Dates Problem Status W/U Status Risk SNOMED Code Notes Problem Neck pain (M54.2) Active confirmed 36167033 VITAL SIGNS Height 70 in 07/05/2025 Weight 225.4 lbs 07/05/2025 Blood pressure systolic 122 mm Hg 07/05/20 25 Blood pressure diastolic 78 mm Hg 025 BMI 32.34 kg/m2 07/05/2025 Encounters Encounter Location Date Provider Diagnosis [facility] [address] [place] [address] 07/05/2025 SILVERIO RO Pain, joint, shoulde r, left M25.512 ; Elevated BP without diagnosis of hypertension R03.0 ; Reducible umbilical hernia K42.9 ; Osteoarthritis, localized, knee M17.10 ; Leukopenia, unspecified type D72.819 ; Elevated cholesterol E78.00 ; Hearing loss, unspecified hearing loss type, unspecified laterality H91.90 ; Vitamin D deficiency E55.9 ; RLS (restless legs syndrome) G25.81 ; Abnormal EKG R94.31 and Neck pain M54.2 ASSESSMENTS Encounter Date Diagnosis Assessment Notes Treatment Notes Treatment Clinical Notes Section Notes 07/05/2025 Pain, joint, shoulder, left (ICD-10 - M25.512) better 07/05/2025 Elevated BP without diagnosis of hypertension (ICD-10 - R03.0) no sx; check BP at home weekly and bring in log; low sodium diet reviewed; want < 130/80 07/05/2025 Reducible umbilical hernia (ICD-10 - K42.9) declines surgery eval 07/05/2025 Osteoarthritis, localized, knee (ICD-10 - M17.10) s/p TKA 07/05/2025 Leukopenia, unspecified type (ICD-10 - D72.819) recheck cbc serially; pt reports negative Dr Imani ahumada 07/05/2025 Elevated cholesterol (ICD-10 - E78.00) low fat/cholesterol diet reviewed; declines increasing to get LDL < 100 07/05/2025 Hearing loss, unspecified hearing loss type, unspecified laterality (ICD-10 - H91.90) declines ENT eval 07/05/2025 Vitamin D deficiency (ICD-10 - E55.9) check vit d serially 07/05/2025 RLS (restless legs syndrome) (ICD-10 - G25.81) offered sleep study vs trial of gabapentin-decl radha both 07/05/2025 Abnormal EKG (ICD-10 - R94.31) ?anterior Q; f/u with cardiology 07/05/2025 Neck pain (ICD-10 - M54.2) pt will be doing MRI with Dr Jiménez PLAN OF TREATMENT Medication Medication Name Sig Start Date Stop Date Notes Vitamin D3 25 MCG 1 tab(s) orally once a day 09/24/2021 Atorvastatin Calcium 10 MG 1 tablet orally Once a day Treatment Notes Assessment Notes Pain, joint, shoulder, left better Elevated BP without diagnosi s of hypertension no sx; check BP at home weekly and bring in log; low sodium diet reviewed; want < 130/80 Reducible umbilical hernia declines surg alden eval Osteoarthritis, localized, knee s/p TKA Leukopenia, unspecified type recheck cbc serially; pt reports negative Dr Imani ahumada Elevated cholesterol low fat/cholesterol diet reviewed; declines increasing to get LDL < 100 Hearing loss, unspecified he aring loss type, unspecified laterality declines ENT eval Vitamin D deficiency check vit d seriall y RLS (restless legs syndrome) offered sle ep study vs trial of gabapentin-declines both Abnormal EKG ?anterior Q; f/u wit h cardiology Neck pain pt will be doing MRI with Dr Jiménez Next Appt Details Follow Up: 6 Months, Reason: Provider Name:SILVERIO REICH, 1 10:15:00 AM, [address] [place] [address], [phone], History and Physical Notes * HPI (History of Present Illness) Category Sub-Category Detail Notes Category Not es Shoulder/Upper arm trauma fall radiation of pain tingling redness shoulder pain Left, diffuse, not w ell localised-better weakness forearm pain exacerbating factors throwing a ball relieving factors upper arm pain character sharp radiation swelling numbness Hypertension BP @ home good except when he had neck pain Trouble with meds chest pain Low salt [...] oriented to pers on, place and time GENERAL General Appearance: well nourish ed, no apparent distress, well developed PSYCHOLOGY Grooming: appropriate Eye contact: normal Mood: pleasant Affect appropriate
--- NOTE | ~2025-07-30 | MR_ITS ---
EXAMINATION: MR CERVICAL SPINE WITHOUT CONTRAST CLINICAL INFORMATION: M 50.90. Cervical disc disorder, unspecified, unspecified cervical region. COMPARISON: None available. TECHNIQUE: MRI of the cervical spine was obtained using routine sequences without contrast. FINDINGS: Craniocervical junction is intact. Normal position of the cerebellar tonsils. No bone marrow STIR signal abnormality. Marginal osteophyte formation and endplate irregularity decreased intervertebral disc height and signal at C4-5 and to a lesser extent C5-6 and C6-7 levels. Modic type I endplate changes at C4-5 and C5-6 level. Grade 1 anterolisthesis C4-5. Grade 1 retrolisthesis, C5-6 and C6-7 levels. Reverse curvature apex at C5. Cervical spinal cord signal is normal. C2-3: Central disc osteophyte complex formation. No cord compression. Right neuroforamina narrowing secondary to facet joint hypertrophy. C3-4: Broad-based disc osteophyte compresses formation resulting in ventral deformity of the spinal cord. Bilateral facet joint hypertrophy, left greater than right resulting in bilateral neuroforamina stenosis. No cord edema and or myelopathy. C4-5: Central disc osteophyte complex formation resulting in ventral spinal cord deformity. There is CSF signal in the thecal sac. Bilateral, right greater than the left neuroforamina stenosis on a degenerative basis. C5-6: Broad-based disc osteophyte complex formation cervical spinal cord deformity and CSF effacement of the thecal sac. No cord signal abnormality. Bilateral neuroforamina stenosis on a degenerative basis. C6-7: Broad-based disc osteophyte compresses formation resulting in ventral spinal cord deformity. CSF signal in the posterior aspect of the thecal sac. Bilateral neuroforamina stenosis secondary to degenerative changes. C7-T1: No cord compression. No neuroforamina stenosis. No prevertebral compartment hematoma, mass or fluid collection. Flow-void signal within the main vessels is normal. Codominant vertebral arteries. MR/MR cervical spine wo con IMPRESSION: Multilevel cervical spondylosis C3 C7 resulting in grade 1 anterolisthesis C4-5 and grade 1 retrolisthesis C5-6 and C6-7 levels with a kyphotic deformity apex at C5 and cord compression without cord edema and or myelopathy at C5-6 and central spinal canal stenosis and bilateral neuroforamina stenosis from C3-4 to C6-7. Electronically signed by: Apollo Haro MD 07/30/2025 08:44 AM EDT RP
--- OUTSIDE RECORDS SUMMARY | 2025-07-30 07:55 | XMS_ITS | Clinical Summary ---
Author Organization [facility] Address [address] [place] [address] Phone Care Team Providers Care Student Nurse Name Role Phone Unavailable Primary Care Provider [...] It is not the complete legal health record.[facility]
--- OUTSIDE RECORDS SUMMARY | 2025-07-30 07:56 | XMS_ITS | Data Portability ---
Author Organization [facility] Address [address] [place] [id number] Care Team Providers Care Admissions Assistant Name Role Phone SILVERIO REICH Referring Provider [phone] Assessment Encounter Date Assessment Date Assessment LastModified by Organization Details LastModified Time 12/15/2023 12/15/2023 Pleasant 63-year-old male following up on his bilateral knee replacements. He is doing well we will continue with the stretching exercises. He will continue his antibiotics until 02/12/2024 which will make the 2-year fidel since his last replacement. Will give him a letter for his dentist per Dr. Hodges protocol. Should he have any other orthopedic needs should they arise he should contact our office for referral to the appropriate specialist. 5-year recall. All questions were answered at today's visit he agrees with the above-noted plan Patient was seen and evaluated by Sina Aggarwal PA-C in indirect conjuction with Documenting Provider: Daniel Hodges MD . He/She agrees with history, physical examination, tests/diagnostic imaging, and treatment plan. Additional treatment plan discussed with the patient (only initiated if in boldface font) otherwise not applicable. Treatment may include the following; - Provider focused nonsteroidal anti-inflammator y regimen (discussed were the pros, cons, benefits and risks as well as any black box warnings) in patients over 60 years old they should be very cautious in taking these medications due to potential decreased kidney function and or elevated blood pressure. - Analgesic pain medication for pain suppression (discussed were the pros, cons, benefits and risks as well as any black box warnings) - The use of topical pain relieving medication were discussed - The use of ice to decrease inflammation and pain - The use of assistive ambulatory devices for ambulation and fall prevention - Formal specific guided physical therapy program I reviewed my findings at length with the patient today. We discussed the nature and etiology of this problem along with current treatment options. We discussed the expected course and outcomes and what to expect. We also discussed risks and benefits. All of their questions were answered today, and there was exhibited understanding and comprehension of all that was discussed. Time Spent: 10 minutes were spent reviewing previous imaging and charting. 10 minutes were spent obtaining patient history. 5 minutes were spent on physical exam. 5minutes were spent explaining diagnosis and assessment. Today's documentation was made using voice recognition software. This note may contain grammatical errors secondary to the software. Not available 12/15/2023 08:50:09 Plan of Treatment Reminders Order Date Submit Date Provider Last Modified By Organization Details Last Modified Time Details Appointments None recorded. Lab None recorded. Referral None recorded. Procedures None recorded. Surgeries None recorded. Imaging XR, knee, 3 view 2023 024 [email or web address], [address], [place], [address], 4 13:22:48 XR, knee, 3 view 2023 024 [email or web address] [facility], [address], [place], [address], 4 13:22:48 Medication Orders amoxicillin 500 mg capsule 2023 024 [id number], [address], [place], [address], 08:50:48 Patient TargetsNo targets recorded. Patient Instructions Encounter Date Encounter Id Patient Instructions Last Modified By Organization Details Last Modified Time 12/15/2023 [id number] Bilateral knee x-rays reveal well-seated well-positioned bilateral total knee arthroplasties without sign of loosening. No acute bony abnormality. Not available 12/15/2023 08:48:11 Reason for Referral None Reported. Problems Name Problem SNOMED Code Status Onset Date Resolution Date Notes Provider Name and Address Organization Details Recorded Time Arthritis of right knee joint 83285021648 77898 Active 2018 Arthritis of knee, right Not Available [facility] 5 00:34:45 Disorder of right sciatic nerve 97939845251 9102 Active 2019 Right sided sciatica Not Available [facility] 5 00:28:48 Problem Notes None recorded. Procedures Surgical History Date Name Laterality Status Provider Name and Address Organization Details Recorded Time total knee replacement completed [facility] - [facility], 12/15/2023 10:19:00 repair of meniscus [facility] 12/[facility] 10:19:15 Imaging Results None recorded. Procedure Notes None recorded. Medical Equipment None Reported. Medications Name Sig Start Date Stop Date Status Note LastModified by Organization Details LastModified Time amoxicillin 500 mg capsule TAKE 4 CAPS ONE HOUR PRIOR TO DENTAL PROCEDURE active Not Available Not Available No t Available acetaminoph en 325 mg tablet Take 975 mg by mouth every 6 (six) hours as needed for pain. 11/16 completed Not Available Not Available Not Available atorvastati n 10 mg tablet active Not Available Not Available Not Available meloxicam 15 mg tablet Take 1 tablet (15 mg total) by mouth daily. 2021 active Not Available Not Available Not Avai lable sennosides 8.6 mg-docusate sodium 50 mg tablet Take 1 tablet by mouth 2 (two) times a day. 2021 active Not Available Not Available Not Avai lable sulfamethox azole 800 mg-trimetho prim 160 mg tablet TAKE 1 TABLET BY MOUTH TWICE A DAY FOR 10 DAYS active Not Available Not Available No t Available aspirin 81 mg tablet,tom yed release Take 1 tablet (81 mg total) by mouth 2 (two) times a day after meals. 2021 active Not Available Not Available Not Avai lable acetaminoph en 500 mg tablet Take 2 tablets (1,000 mg total) by mouth every 8 (eight) hours. 2019 active Not Available Not Available Not Avai lable amoxicillin 500 mg tablet Take 4 tabs 1 hour prior to dental appointme nt 2021 active Not Available Not Available Not Avai lable methocarbam ol 750 mg tablet Take 1 tablet (750 mg total) by mouth every 6 (six) hours as needed. 2021 active Not Available Not Available Not Avai lable pantoprazol e 40 mg tablet,tom yed release Take 1 tablet (40 mg total) by mouth every morning on an empty stomach. 02/01 completed Not Available Not Available Not Available methylpredn isolone acetate 40 mg/mL suspension for injection 07/24 completed Not Available Not Available Not Available ibuprofen 200 mg tablet Take 600 mg by mouth every 6 (six) hours as needed for pain. 11/16 completed Not Available Not Available Not Available diclofenac sodium 75 mg tablet,tom yed release TAKE 1 TABLET BY MOUTH TWICE A DAY AFTER MEALS NEEDED FOR 30 DAYS active Not Available Not Available No t Available diazepam 5 mg tablet Take 1 tab 60 minutes prior to MRI study. Have somebody drive you to and from study. 02/01 completed Not Available Not Available Not Available oxycodone 5 mg tablet Take 1 tablet (5 mg total) by mouth every 4 (four) hours as needed. 2021 active Not Available Not Available Not Avai lable lidocaine (PF) 10 mg/mL (1 %) injection solution 08/30 completed Not Available Not Available Not Available Flowflex COVID-19 Antigen Home Test kit FOLLOW INSTRUCTI ONS INCLUDED WITH THE PACKAGE. 12/14 completed Not Available Not Available Not Available Vitals Date Recorded Body height Body mass index (BMI) Body weight Provider Name and Address Organization Details Last Updated DateTime 12/15/2023 182.88 cm 30.5 kg/m2 962738.[address] [place] [facility], 12/15/2023 10:17:30 Social History None recorded. Functional Status Question Answer Note LastModified by Organizat ion Details LastModified Time How many times per week do you consume alcohol? 3-4 times per week Information not available 12/15/2023 Do you use any illicit or recreational drugs? No Information not available 12/15/2023 Do you or have you ever used any other forms of tobacco or nicotine? No Information not available 12/15/2023 What is your level of alcohol consumption? Occasional Information not available 12/15/2023 Mental Status None recorded. Family History Relationship Description Onset Age of this Age Resolved Age Notes LastModified by Organization Details LastModified Time Mother Family history of malignant neoplasm Not available 2023 10:17:54 Mother Heart disease Not available 2023 10:18:11 Sister Family history of malignant neoplasm Not available 2023 10:17:54 Sister Hypercholest erolemia Not available 2023 10:18:24 Brother Family history of malignant neoplasm Not available 2023 10:17:54 Brother Heart disease Not available 2023 10:18:11 Brother Hypercholest erolemia Not available 2023 10:18:24 Medical History Condition Response Coronary Artery Disease N Gout N Hyperthyroidism N MRSA N Blood Transfusion N Emphysema N Hypothyroidism N COPD N Depression N Pacemaker N Vascular Disease N Gastrointestinal Disease N Anxiety Disorder N Autoimmune disease N Arthritis N Cancer N Stroke N High Cholesterol N Neurologic Disorder N Liver Disease N Organ Transplant N Arrhythmia N Rheumatoid Arthritis N Fibromyalgia N Kidney Disease N Allergies/Hayfever N Adverse Reaction to Anesthesia N Thyroid Problems N Anemia N Brain Injury N Heart Attack ([place]) N Osteopenia N Diabetes N Bleeding Disorder N Seizures/Epilepsy N AIDS/HIV N Congestive Heart Failure (CHF) N Asthma N Amputation N Reflux/GERD N Sleep Apnea N Hepatitis N Aneurysm N Heart Disease N Pulmonary Embolism N Hypertension N Osteoporosis N Immunizations Vaccine Type Date Status Note Provider Nam e and Address Organization Details Recorded Time COVID-19, mRNA, LNP-S, PF, 100 mcg/0.5mL dose or 50 mcg/0.25mL dose 12/15/2020 completed Not Available [facility] 5 05:37:15 COVID-19, mRNA, LNP-S, PF, 100 mcg/0.5mL dose or 50 mcg/0.25mL dose 08/28/2021 completed Not Available [facility] 5 05:37:15 COVID-19, mRNA, LNP-S, PF, 100 mcg/0.5mL dose or 50 mcg/0.25mL dose 01/12/2021 completed Not Available [facility] 5 05:37:15 Past Encounters Encounter ID Performer Location Encounter Start Date Encounter Closed Date Diagnosis/Indication Diagnosis SNOMED-CT Code Diagnosis ICD10 Code Diagnosis IMO Codes Diagnosis Note [id number] ABDI CIFUENTES [facility] [address] [place] [address] 12/15/2023 08:21:00 12/15/2023 08:51:06 History of right total knee replacement [id number] 581301 Z96.651 History of left total knee replacement 9649619513 732885 Z96.652 Health Concerns Section Related Observation LastModified by Organization Detai ls LastModified Time None Recorded Concern Status LastModified by Organization Details LastModified Time None Recorded Advance Directives Directive None Recorded Payers Insurance Date Sequence Insurance Name Policy Number Policy Alexander Covered Member ID Alexander Member ID Guarantor Name 04/11/2024 1 [facility] [id number] Ernie Cortés [id number] Notes Date Note Type Note Provider Name and Address Organization Details Recorded Time 12/15/2023 text/html Pleasant 63-year-old male following up on his bilateral knee replacements right knee replacement was performed on 11/15/2019 and his left knee replacement was performed on 02/11/2022. Patient states he is doing well no complaints. Here for scheduled follow-up. Bilateral knee x-rays reveal well-seated well-positioned bilateral total knee arthroplasties without sign of loosening. No acute bony abnormality. SINA AGGARWAL PA-C [address] [facility] [address], [place], [address], [place] [facility], 12/15/2023 08:51:10
--- OUTSIDE RECORDS SUMMARY | 2025-07-30 07:56 | XMS_ITS ---
Author Name [facility] Organization Unknown History of Medication Use Medication Directions Dispensed Refills Start Date End Date [facility] amoxicillin 500 mg capsule Take 4 tablets one hour prior to dental procedure 12/15/2023 active amoxicillin 500 mg capsule active diclofenac sodium 75 mg tablet,delayed release TAKE 1 TABLET BY MOUTH TWICE A DAY AFTER MEALS NEEDED FOR 30 DAYS active Flowflex COVID-19 Antigen Home Test kit FOLLOW INSTRUCTIONS INCLUDED WITH THE PACKAGE. active sulfamethoxazole 800 mg-trimethoprim 160 mg tablet TAKE 1 TABLET BY MOUTH TWICE A DAY FOR 10 DAYS active Encounters Encounter Type Encounter Reason Primary Diagnosis Location Date Ambulatory [facility] 12/15/2023 Ambulatory [facility] 12/15/2023 Ambulatory [facility] 12/15/2023 Ambulatory [facility] 12/15/2023 Ambulatory [facility] 12/15/2022 Care Team Organization Name Specialty Phone Email Start Date End Da michelle [facility] SILVERIO REICH Primary Care 09/09/2022 05/28/2024
--- OUTSIDE RECORDS SUMMARY | 2025-07-30 07:56 | XMS_ITS | Patient Health Record ---
Author Organization [facility] Address [address], [place] [id number] Care Team Providers Care Refrigeration Insulator Name Role Phone SILVERIO REICH Primary Care Provider [place], NURSING Unavailable [phone] ALLERGIES No Known Allergies REASON FOR REFERRAL Reason (06/08/25 Wtg appt) L eft shoulder pain, Physical therapy Diagnosis 1 Left shoulder pain, unspecified chronicity (M25.512) Referral Organization [facility] Referring Provider First Name SILVERIO Referring Provider Last Name DAMIR Referring Provider Speciality Internal M edicine Referred Provider [facility], [facility] Referred Provider Specialty Physical Margarito molina General Notes Rosalinda DAVID [place] 05/12 08:16:47 AM > Faxed referral and film to [facility] f: , Estephanie DAVID Referrals 06/12/2025 11:20:22 AM > noted Referral Priority Routine MEDICATIONS Medication SIG (Take, Route, Frequency, Duration) Notes Start Date End Date Status Multivitamin - 1 tablet orally once a day Active Lisinopril 10 MG 1 tablet Orally Once a day for 90 days 06/05/2025 Active Diclofenac Sodium 75 MG 1 tablet as need ed Orally Twice a day prn 5-7 per week Active Aspirin 325 MG 1 tablet orally Once a day prn Active Vitamin D3 25 MCG 1 tab(s) orally once a day 09/24/2021 Active Advil 200 MG 1 tablet with food or milk as needed orally once a day Active Atorvastatin Calcium 10 MG 1 tablet orally Once a day Active IMMUNIZATIONS Vaccine Route Administration Date Status Comme nts Tdap (Adacel) IM Intramuscular 12/29/2017 Administered SHINGRIX HZV VACCINE IM Intramuscular 07/22/2020 Administe red SHINGRIX HZV VACCINE IM Intramuscular 09/22/2020 Administe red [id number] IM Intramuscular 12/03/2024 Administered Pfizer COVID-19,mRNA, LNP-S, PF, 30mcg/0.3mL dose IM Intramuscular 07/05/2023 Administered COMIRNATY Influenza Vaccine[158] IM Intramuscular 07/22/2020 Adminis tered Flucelvax Influenza Vaccine Quad Unknown 07/05/2023 Administered SOCIAL HISTORY Tobacco Use: Social History Observation Description Date Details (start date - stop date) Never Smoker NA - NA Sex Assigned At : Social History Observation Description Sex Assigned At Unknown Smoking Question Answer Notes Are you a: never smoker Section Notes: never smoked never smoked never smoked never smoked never smoked never smoked never smoked never smoked never smoked never smoked never smoked never smoked never smoked never smoked never smoked PROBLEMS Problem Type ICD Code Onset Dates Problem Status W/U Status Risk SNOMED Code Notes Problem Vitamin D deficiency (E55.9) Active confirmed 06466936 Problem Neck pain (M54.2) Active confirmed 49843444 Problem Personal history of colonic polyps (Z86.010) Active confirmed 866085282 Problem RLS (restless legs syndrome) (G25.81) Active confirmed 15725036 Problem Neutropenia, unspecified type (D70.9) Active confirmed 662735651 Problem Leukopenia, unspecified type (D72.819) Active confirmed 39661999 Problem Low vitamin D level (E55.9) Active confirmed Vitamin D deficiency (92208186) Problem Leukocytopenia, unspecified (D72.819) Active confirmed 65966510 Problem Elevated cholesterol (E78.00) Active confirmed 00833751 Problem Hearing loss, unspecified hearing loss type, unspecified laterality (H91.90) Active confirmed 45238689 Problem Osteoarthritis, localized, knee (M17.10) Active confirmed 392097090 VITAL SIGNS Blood pressure diastolic 78 mm Hg 07/05/2025 Height 70 in 07/05/2025 Blood pressure systolic 122 mm Hg 07/05/2025 Weight 225.4 lbs 07/05/2025 BMI 32.34 kg/m2 07/05/2025 Encounters Encounter Location Date Provider Diagnosis [facility] [address] [id number] 11/27/2024 SILVERIO REICH Routine medical exam Z00.00 ; Elevated cholesterol E78.00 ; Leukopenia, unspecified type D72.819 ; Hematuria, unspecified type R31.9 ; Osteoarthritis, localized, knee M17.10 ; Vitamin D deficiency E55.9 and Urinary symptom or sign R39.9 [place] [id number] 12/03/2024 SILVERIO REICH Reducible umbilical hernia K42.9 ; Right groin pain R10.31 ; Elevated BP without diagnosis of hypertension R03.0 ; Osteoarthritis, localized, knee M17.10 ; Chest discomfort R07.89 ; Leukopenia, unspecified type D72.819 ; Elevated cholesterol E78.00 ; Hearing loss, unspecified hearing loss type, unspecified laterality H91.90 ; Vitamin D deficiency E55.9 ; RLS (restless legs syndrome) G25.81 and Abnormal EKG R94.31 [place] [address] 12/03/2024 SILVERIO REICH [place] [address] 12/03/2024 NURSING [place] Encounter for immunization Z23 [place] [address] 12/03/2024 SILVERIO REICH Medicare annual wellness visit, initial Z00.00 [place] [id number] 06/05/2025 SILVERIO REICH Reducible umbilical hernia K42.9 ; Pain, joint, shoulder, left M25.512 ; Elevated BP without diagnosis of hypertension R03.0 ; Osteoarthritis, localized, knee M17.10 ; Leukopenia, unspecified type D72.819 ; Elevated cholesterol E78.00 ; Hearing loss, unspecified hearing loss type, unspecified laterality H91.90 ; Vitamin D deficiency E55.9 ; RLS (restless legs syndrome) G25.81 and Abnormal EKG R94.31 [place] [id number] 06/07/2025 SILVERIO REICH [place] [id number] 06/30/2025 SILVERIO RO Elevated BP without diagnosis of hypertension R03.0 [facility] [address] [place] [address] 07/05/2025 SILVERIO RO Pain, joint, shoulder, left M25.512 ; Elevated [...] hernia (ICD-10 - K42.9) declines surgery eval 11/27/2024 Routine medical exam (ICD-10 - Z00.00) 11/27/2024 Elevated cholesterol (ICD-10 - E78.00) 12/03/2024 Medicare annual wellness visit, initial (ICD-10 - Z00.00) Health Risk Assessment form reviewed with patient and scanned into chart 06/05/2025 Pain, joint, shoulder, left (ICD-10 - M25.512) prob adhesive capsulitsi vs tendonitis; will do x-ray and plan PT/ortho eval 06/05/2025 Reducible umbilical hernia (ICD-10 - K42.9) declines surgery eval 12/03/2024 Encounter for immunization (ICD-10 - Z23) Pneumococcal Conjugate 20 given today. Patient counseled and given VIS sheet for review. 07/05/2025 Pain, joint, shoulder, left (ICD-10 - M25.512) better 07/05/2025 Elevated BP without diagnosis of hypertension (ICD-10 - R03.0) no sx; check BP at home weekly and bring in log; low sodium diet reviewed; want < 130/80 06/30/2025 Elevated BP without diagnosis of hypertension (ICD-10 - R03.0) 12/03/2024 Elevated BP without diagnosis of hypertension (ICD-10 - R03.0) no sx; check BP at home weekly and bring in log; low sodium diet reviewed 12/03/2024 Right groin pain (ICD-10 - R10.31) resolved 11/27/2024 Leukopenia, unspecified type (ICD-10 - D72.819) 06/05/2025 Elevated BP without diagnosis of hypertension (ICD-10 - R03.0) no sx; check BP at home weekly and bring in log; low sodium diet reviewed; side effects, risks, and benefits of medication reviewed 07/05/2025 Reducible umbilical hernia (ICD-10 - K42.9) declines surgery eval 11/27/2024 Hematuria, unspecified type (ICD-10 - R31.9) 06/05/2025 Osteoarthritis, localized, knee (ICD-10 - M17.10) s/p TKA 12/03/2024 Osteoarthritis, localized, knee (ICD-10 - M17.10) s/p TKA 07/05/2025 Osteoarthritis, localized, knee (ICD-10 - M17.10) s/p TKA 11/27/2024 Osteoarthritis, localized, knee (ICD-10 - M17.10) 06/05/2025 Leukopenia, unspecified type (ICD-10 - D72.819) recheck cbc serially; pt reports negative Dr Imani ahumada 07/05/2025 Leukopenia, unspecified type (ICD-10 - D72.819) recheck cbc serially; pt reports negative Dr Imani ahumada 12/03/2024 Chest discomfort (ICD-10 - R07.89) resolved; f/u with Dr Bullock-obtain notes 07/05/2025 Elevated cholesterol (ICD-10 - E78.00) low fat/cholesterol diet reviewed; declines increasing to get LDL < 100 06/05/2025 Elevated cholesterol (ICD-10 - E78.00) low fat/cholesterol diet reviewed 11/27/2024 Vitamin D deficiency (ICD-10 - E55.9) 12/03/2024 Leukopenia, unspecified type (ICD-10 - D72.819) recheck cbc serially; pt reports negative Dr Imani ahumada 11/27/2024 Urinary symptom or sign (ICD-10 - R39.9) 12/03/2024 Elevated cholesterol (ICD-10 - E78.00) low fat/cholesterol diet reviewed 06/05/2025 Hearing loss, unspecified hearing loss type, unspecified laterality (ICD-10 - H91.90) declines ENT eval 07/05/2025 Hearing loss, unspecified hearing loss type, unspecified laterality (ICD-10 - H91.90) declines ENT eval 06/05/2025 Vitamin D deficiency (ICD-10 - E55.9) check vit d serially 12/03/2024 Hearing loss, unspecified hearing loss type, unspecified laterality (ICD-10 - H91.90) declines ENT eval 07/05/2025 Vitamin D deficiency (ICD-10 - E55.9) check vit d serially 06/05/2025 RLS (restless legs syndrome) (ICD-10 - G25.81) offered sleep study vs trial of gabapentin-decli kirk both 07/05/2025 RLS (restless legs syndrome) (ICD-10 - G25.81) offered sleep study vs trial of gabapentin-decli kirk both 12/03/2024 Vitamin D deficiency (ICD-10 - E55.9) check vit d serially 06/05/2025 Abnormal EKG (ICD-10 - R94.31) ?anterior Q; f/u with cardiology 07/05/2025 Abnormal EKG (ICD-10 - R94.31) ?anterior Q; f/u with cardiology 12/03/2024 RLS (restless legs syndrome) (ICD-10 - G25.81) offered sleep study vs trial of gabapentin-decli kirk both 07/05/2025 Neck pain (ICD-10 - M54.2) pt will be doing MRI with Dr Jiménez 12/03/2024 Abnormal EKG (ICD-10 - R94.31) ?anterior Q; f/u with cardiology 06/05/2025 Other 12/03/2024 Other pt declines checking hiv, hep c; RACHEL monthly; safe sex practice/sunscre en/seatbelt/helm et/condom use reviewed; see ophthy at least once q24 months/dentist at least once [id number]; exercise 4-5x/wk and follow healthy diet PLAN OF TREATMENT Future Test Test Name Order Date LIPID PROFILE 11/28/2022 HEPATIC FUNCTION PANEL 11/28/2022 Next Appt Details Provider Name:SILVERIO REICH, 1 10:15:00 AM, [address] [place], [address], Insurance Providers Payer Name Payer Address Payer Phone Subscriber Number Group Number Insured Name Patient Relationship to Insured Coverage Start Date Coverage End Date [employer]IC[employer] [address] [place] [address] [phone] [id number] HATTIE CORTÉS Self - patient is the insured 4 [employer] [address] [place] [address] [phone] [id number] HATTIE CORTÉS Self - patient is the insured 4 MEDICAL (GENERAL) HISTORY Medical History History ICD Code Colon 9mm sessile flat mid a sc polyp-PAth Sessile serrated adenoma- Rec [id number] Arthritis - knees; Dr Doctor CTS degenerative disc disease - Dr Jiménez high chol allergic rhinitis HCP: Mesfin Cortés (son) [phone]* Colonoscopy 03/16/2019 - One 10 mm polyp in the distal ascending colon. Path: sessile serrated adenoma/polyp without dysplasia vitreous hemorrhag Surgical History Surgery Date(Month/Year) colonoscopy repeat 5 yrs -Dr. Lindo Left knee total replacement - Dr. Abreu 02/12/2022 Right knee total replacement - Dr. Abreu 11/15/2019 colonoscopy - Dr. Green 03/2019 left hernia repair Right Knee and Left Knee 2006 and 2012
--- OUTSIDE RECORDS SUMMARY | 2025-07-30 07:56 | XMS_ITS | Clinical Summary ---
Author Organization [facility] Address [address] [place], [place] [id number] Care Team Providers Care Geospatial Information Scientist Name Role Phone Long Hayes MD Primary Care Provider [phone] Allergies Active Allergy Reactions Criticality Noted Date [...] this topic Medical Devices Implanted Type Area Poleyard Supervisor Device Identifier Shelf Expiration Date Model / Serial / Lot Cement Simplex P Radiopaque Full Dose Bone 10 Pack - [id number] - [id number] Implanted:Qty: 1 on 11/15/2019 by Mike Rangel MD at [facility] Right: Knee [employer] 07/09/2021 6191-1-010 / / [id number] Cement Simplex P Radiopaque Full Dose Bone 10 Pack - 391678 - [id number] Implanted:Qty: 1 on 11/15/2019 by Mike Rangel MD at [facility] Right: Knee [employer] 07/09/2021 6191-1-010 / / [id number] Component Triathlon 7 Posterior Stabilized Cemented Femoral - 552931 - [id number] Implanted:Qty: 1 on 11/15/2019 by Mike Rangel MD at [facility] Right: Knee [employer] 02/06/2024 5515-F-702 / / [id number] Baseplate Triathlon 8 Primary Cemented Tibial Knee - 793507 - [id number] Implanted:Qty: 1 on 11/15/2019 by Mike Rangel MD at [facility] Right: Knee [employer] 10/31/2023 5520-B-800 / / [id number] Insert Triathlon 8 13mm Posterior Stabilized Bearing X3 - 972884 - [id number] Implanted:Qty: 1 on 11/15/2019 by Mike Rangel MD at [facility] Right: Knee [employer] 10/17/2022 5532-G-813 / / [id number] Component Triathlon 10mm 35mm Symmetric X3 Ptlar Knee - 158857 - [id number] Implanted:Qty: 1 on 11/15/2019 by Mike Rangel MD at [facility] Right: Knee [employer] 12/24/2023 5551-G-350 / / [id number] Peg Triathlon Modular Fix Distal Femur Knee - 641329 - [id number] Implanted:Qty: 1 on 11/15/2019 by Mike Rangel MD at [facility] Right: Knee [employer] 07/01/2024 5575-X-000 / / [id number] Knee Fem Ps Trthln Sz 7 Lt Stry-Howm 0673-E-272-534 743 - [id number] Implanted:Qty: 1 on 02/11/2022 by Mike Rangel MD at [facility] Left: Knee [employer] [id number] 10/16/2023 5515-F-701 / / [id number] Knee Tib Base Plt Trthln Sz 8 Stry-Howm 3330-S-025-631 519 - [id number] Implanted:Qty: 1 on 02/11/2022 by Mike Rangel MD at [facility] Left: Knee [employer] [id number] 06/09/2026 5520-B-800 / / [id number] Knee Tib Insrt Ps X3 8x13 Stry-Howm 0300-H-533-549 545 - [id number] Implanted:Qty: 1 on 02/11/2022 by Mike Rangel MD at [facility] Left: Knee [employer] [id number] 10/24/2022 5532-G-813 / / [id number] Knee Pat Asymmetric 70x15au Stry-Howm 8925-X-819-E-2 55358 - [id number] Implanted:Qty: 1 on 02/11/2022 by Mike Rangel MD at [facility] Left: Knee [employer] [id number] 09/27/2026 5551-G-350 -E / / [id number] Peg Fix Femoral Distal Stry-How 5629-Q-914-547 704 - [id number] Implanted:Qty: 1 on 02/11/2022 by Mike Rangel MD at [facility] Left: Knee [employer] [id number] 05/18/2026 5575-X-000 / / [id number] Cement Bone Surg Simplex Radiopq Stry-How 1097-0-163-114 092 - [id number] Implanted:Qty: 1 on 02/11/2022 by Mike Rangel MD at [facility] Left: Knee [employer] 05/09/2024 6191-1-010 / / Description:LOT # [id number] Cement Bone Surg Simplex Radiopq Stry-How 5110-7-381-114 092 - [id number] Implanted:Qty: 1 on 02/11/2022 by Mike Rangel MD at [facility] Left: Knee [employer] 05/09/2024 6191-1-010 / / Description:LOT # [id number] Advance Directives For more information, please contact: [phone] Latest Code Status on File Code Status [...] way: discussion with patient . Care Teams Geospatial Information Scientist Relationship Specialty Start Date End Date Long Hayes MD [address] [place] [id number] PCP - General Internal Medicine 01/03/18
== END 2025-07-30 07:54 | disposition home or self-care (01) ==
LOC: HO.MRI 07:53
PROVIDERS: PCP Internal Medicine; Visit Provider Registered Nurse
DX: M50.90 Cervical disc disorder, unspecified, unspecified cervical region (principal)
CPT/HCPCS: 72141

== ENCOUNTER 2025-09-04 12:44 | Outpatient (AMB) | payer MEDICARE, SELFPAY ==
--- NOTE | 2025-09-04 12:52 | A.OFFVIS_ITS ---
Intake Visit Reasons: after MRI Allergies No Known Allergies Allergy (Verified 09/04/25 12:56) Medication List - Last Reconciled 09/04/25 by Deepti Palumbo CNP atorvastatin 10 mg PO DAILY cyclobenzaprine 5 mg PO BID PRN diclofenac sodium 75 mg PO BID PRN 30 days lisinopril 10 mg PO DAILY HPI Comments Details: He was doing okay. Neck pain was okay with diclofenac and cyclobenzaprine as needed, but cyclobenzaprine was no longer covered by insurance. He had few episodes of brief weakness in both arms for 3 month period between 03/2025 - 06/2025 that occasionally ended with some discomfort in neck, no episodes since 06/2025. No specific triggers identified. Occasional numbness in hands, but no pain.?Walking about 30 minutes/day. Feet and toes stinging was okay. He bought a condo in [place] and was planning to go there on 09/09/2025 for 6 months. He did not hear back from neurosurgery with appointment yet. Had episode of severe left neck pain at the end of 05/2024, better after prednisone and did some PT. Had MRI with degen disc disease. Dr Cooper suggested no surgery. Slight neck restriction. Doing neck exercises. Walks, no longer playing pickleball. Right elbow and arm soreness since fall in Nov 2017. He has a history of cervical disc disease in 1997 with a C6 radiculopathy. [facility] Medical History (Updated 09/04/25 @ 12:56 by Deepti Palumbo CNP) Osteoarthritis Cervical disc disease Acquired spondylolisthesis Cervicalgia Carpal tunnel syndrome Review of Systems Const Denies chills, Denies daytime sleepiness, Denies difficulty sleeping, Denies fatigue, Denies fever(s), Denies frequent falls, Denies headache(s), Denies increased appetite, Denies poor appetite, Denies snoring, Denies weakness, Denies weight gain and Denies weight loss Eyes Denies loss of vision ENT Denies vertigo, Denies dizziness, Denies headache(s) and Reports neck pain Card Denies chest pain at rest, Denies chest pain with activity, Denies syncope, Denies leg edema, Denies palpitations, Denies dyspnea and Denies dyspnea on exertion Resp Denies cough, Denies dyspnea, Denies dyspnea on exertion and Denies snoring GI Denies abdominal pain, Denies constipation, Denies heartburn, Denies diarrhea and Denies nausea Denies urinary frequency, Denies urinary incontinence and Denies urinary urgency Musc Denies abnormal gait, Denies back pain, Denies myalgias, Reports arthralgias, Reports neck pain, Reports numbness and Reports tingling Neuro Denies abnormal gait, Denies vertigo, Denies dizziness, Denies syncope, Denies frequent falls, Denies headache(s), Denies lack of coordination, Denies loss of vision, Denies memory loss, Reports numbness, Denies Other visual disturbances, Denies restless legs, Denies seizure-like activity, Reports tingling, Denies paresthesias, Denies tremor(s) and Denies weakness Psych Denies anxiety, Denies depression, Denies auditory hallucinations, Denies memory loss and Denies visual hallucinations Endo Denies fatigue and Denies palpitations Physical Exam Const Other: General Appearance:? normal, in no acute distress. Heart:? S1, S2 normal, no murmurs. Lungs:? clear anteriorly and posteriorly. Musculoskeletal:? normal. Extremities:? no edema. Psych:? alert, oriented, cognitive function intact, cooperative with exam. Neuro Other: Abnormal Neurological Findings: 5-/5 L deltoid weakness. Mild tremor on sustained posture. Mental Status: alert and oriented X 3. Normal attention, orientation, memory, and affect. Cranial Nerves: Pupils are equal, round, and reactive to light. External ocular muscles are intact. Visual brian are full, no ptosis. Face is symmetrical, no facial weakness or droop. Facial sensations are normal. Tongue protrudes in midline. Palate elevates symmetrically. Shoulder shrugging is normal Motor Examination: As above, otherwise normal muscle tone, bulk and strength. No atrophy or fasciculations. No drift of the extended upper extremities. DTR 2+. Plantars are flexor. Sensory Exam: Normal light touch, temperature, pinprick, vibration, and joint- position sensations. Rhomberg sign is absent. Coordination: No ataxia. No titubation. Gait Exam: Within normal limits. Cerebellar Signs: Jwjush-in-ardd is okay. Extrapyramidal System: Tremor as above. No rigidity with normal facial expressions. No bradykinesia. No bradyphrenia. Normal arm swing and posture. No propulsion or retropulsion. Speech: Normal. Results Reviewed Results Reviewed: [address] [address] Magnetic Resonance Report Signed Patient: Ernie Cortés MR#: [id number] : 1960 Acct:[id number] Age/Sex: 65 / M ADM Date: 07/30/25 Loc: HO.MRI Attending Dr: Deepti Palumbo CNP Ordering Physician: Deepti Palumbo CNP Date of Service: 07/30/25 Procedure(s): MR cervical spine wo con Accession Number(s): [id number] cc: SILVERIO REICH MD; Deepti Palumbo CNP~ Reason for Exam: M50.90 - Cervical disc disorder, unspecified, unspecified cervical region EXAMINATION: MR CERVICAL SPINE WITHOUT CONTRAST CLINICAL INFORMATION: M 50.90. Cervical disc disorder, unspecified, unspecified cervical region. COMPARISON: None available. TECHNIQUE: MRI of the cervical spine was obtained using routine sequences without contrast. FINDINGS: Craniocervical junction is intact. Normal position of the cerebellar tonsils. No bone marrow STIR signal abnormality. Marginal osteophyte formation and endplate irregularity decreased intervertebral disc height and signal at C4-5 and to a lesser extent C5-6 and C6-7 levels. Modic type I endplate changes at C4-5 and C5-6 level. Grade 1 anterolisthesis C4-5. Grade 1 retrolisthesis, C5-6 and C6-7 levels. Reverse curvature apex at C5. Cervical spinal cord signal is normal. C2-3: Central disc osteophyte complex formation. No cord compression. Right neuroforamina narrowing secondary to facet joint hypertrophy. C3-4: Broad-based disc osteophyte compresses formation resulting in ventral deformity of the spinal cord. Bilateral facet joint hypertrophy, left greater than right resulting in bilateral neuroforamina stenosis. No cord edema and or myelopathy. C4-5: Central disc osteophyte complex formation resulting in ventral spinal cord deformity. There is CSF signal in the thecal sac. Bilateral, right greater than the left neuroforamina stenosis on a degenerative basis. C5-6: Broad-based disc osteophyte complex formation cervical spinal cord deformity and CSF effacement of the thecal sac. No cord signal abnormality. Bilateral neuroforamina stenosis on a degenerative basis. C6-7: Broad-based disc osteophyte compresses formation resulting in ventral spinal cord deformity. CSF signal in the posterior aspect of the thecal sac. Bilateral neuroforamina stenosis secondary to degenerative changes. C7-T1: No cord compression. No neuroforamina stenosis. No prevertebral compartment hematoma, mass or fluid collection. Flow-void signal within the main vessels is normal. Codominant vertebral arteries. MR/MR cervical spine wo con IMPRESSION: Multilevel cervical spondylosis C3 C7 resulting in grade 1 anterolisthesis C4-5 and grade 1 retrolisthesis C5-6 and C6-7 levels with a kyphotic deformity apex at C5 and cord compression without cord edema and or myelopathy at C5-6 and central spinal canal stenosis and bilateral neuroforamina stenosis from C3-4 to C6-7. Electronically signed by: Apollo Haro MD 07/30/2025 08:44 AM EDT RP Dictated By: Apollo Quinteros MD Signed By: <Electronically signed by Apollo Chiang MD in OV> 07/30/25 0844 -- 01/04/22 NCV/EMG UE Mild bilateral Carpal tunnel syndrome, right worse than left. Right is slightly worse and left is unchanged since last NCV/EMG done in 2014. Normal EMG in the right C5-T1 innervated muscles. Assessment & Plan Assessment & Plan (1) Cervical disc disease: Code(s): M50.90 - Cervical disc disorder, unspecified, unspecified cervical region Category: Medical Plan: Cyclobenzaprine was no longer covered by insurance and medication was stopped. Start tizanidine 2mg 1 tablet twice a day as needed for muscle spasm/pain, use/side effects reviewed. Continue diclofenac sodium 75mg 1 tablet as needed with food twice a day for pain. (2) Cervical spondylosis: Code(s): M47.812 - Spondylosis without myelopathy or radiculopathy, cervical region Category: Medical Plan: MRI results reviewed. Neurosurgery referral to [facility] placed earlier this month, however he did not hear from them with appointment yet and will ask front office staff to follow up on status of referral. He was planning to leave for [place] next week for the next 6 months, but would consider coming back to [facility] for appointments if needed in the next few months and he was strongly encouraged to follow up with neurosurgery as soon as possible. ER precautions reviewed. He prefers to follow up here in 04/2025 when he returns from [place], follow up sooner as needed. (3) Cervicalgia: Code(s): M54.2 - Cervicalgia Category: Medical (4) Acquired spondylolisthesis: Code(s): M43.10 - Spondylolisthesis, site unspecified Category: Medical Plan . Medications: New tizanidine 2 mg PO BID PRN 60 caps 5RF muscle spasticity, pain 30 days Coding Level of Care Code Est Pt Level 4 (46530) Diagnoses Cervical disc disease M50.90 Cervical spondylosis M47.812 Cervicalgia M54.2 Acquired spondylolisthesis M43.10
--- OUTSIDE RECORDS SUMMARY | 2025-09-04 15:44 | XMS_ITS | Clinical Summary ---
Author Organization [facility] Address [address] [place] [address] Phone Care Team Providers Care Buttonhole Tacker Name Role Phone Unavailable Primary Care Provider [...] It is not the complete legal health record.[facility]
--- OUTSIDE RECORDS SUMMARY | 2025-09-04 15:44 | XMS_ITS | Clinical Summary ---
Author Organization [facility] Address [address] [place], [place] [id number] Care Team Providers Care Transportation Clerk Name Role Phone Long Hayes MD Primary Care Provider [phone] Allergies Active Allergy Reactions Criticality Noted Date [...] this topic Medical Devices Implanted Type Area Odd Bundle Worker Device Identifier Shelf Expiration Date Model / Serial / Lot Cement Simplex P Radiopaque Full Dose Bone 10 Pack - [id number] - [id number] Implanted:Qty: 1 on 11/15/2019 by Mike Rangel MD at [facility] Right: Knee [facility] [facility] 07/09/2021 6191-1-010 / / [id number] Cement Simplex P Radiopaque Full Dose Bone 10 Pack - [id number] - [id number] Implanted:Qty: 1 on 11/15/2019 by Mike Rangel MD at [facility] Right: Knee [employer] 07/09/2021 6191-1-010 / / [id number] Component Triathlon 7 Posterior Stabilized Cemented Femoral - [id number] - [id number] Implanted:Qty: 1 on 11/15/2019 by Mike Rangel MD at [facility] Right: Knee [facility] [facility] 02/06/2024 5515-F-702 / / [id number] Baseplate Triathlon 8 Primary Cemented Tibial Knee - [id number] - [id number] Implanted:Qty: 1 on 11/15/2019 by Mike Rangel MD at [facility] Right: Knee [facility] 10/31/2023 5520-B-800 / / [id number] Insert Triathlon 8 13mm Posterior Stabilized Bearing X3 - [id number] - [id number] Implanted:Qty: 1 on 11/15/2019 by Mike Rangel MD at [facility] Right: Knee [employer] 10/17/2022 5532-G-813 / / [id number] Component Triathlon 10mm 35mm Symmetric X3 Ptlar Knee - [id number] - [id number] Implanted:Qty: 1 on 11/15/2019 by Mike Rangel MD at [facility] Right: Knee [facility] 12/24/2023 5551-G-350 / / [id number] Peg Triathlon Modular Fix Distal Femur Knee - [id number] - [id number] Implanted:Qty: 1 on 11/15/2019 by Mike Rangel MD at [facility] Right: Knee [employer] 07/01/2024 5575-X-000 / / [id number] Knee Fem Ps Trthln Sz 7 Lt Stry-Howm 8602-H-639-534 743 - [id number] Implanted:Qty: 1 on 02/11/2022 by Mike Rangel MD at [facility] Left: Knee [facility] [id number] 10/16/2023 5515-F-701 / / [id number] Knee Tib Base Plt Trthln Sz 8 Stry-Howm 4405-N-393-631 519 - [id number] Implanted:Qty: 1 on 02/11/2022 by Mike Rangel MD at [facility] Left: Knee [facility] [id number] 06/09/2026 5520-B-800 / / [id number] Knee Tib Insrt Ps X3 8x13 Stry-Howm 4313-J-050-549 545 - [id number] Implanted:Qty: 1 on 02/11/2022 by Mike Rangel MD at [facility] Left: Knee [facility] [id number] 10/24/2022 5532-G-813 / / [id number] Knee Pat Asymmetric 19q19hk Stry-Howm 5749-Z-316-E-2 71913 - [id number] Implanted:Qty: 1 on 02/11/2022 by Mike Rangel MD at [facility] Left: Knee [facility] [id number] 09/27/2026 5551-G-350 -E / / [id number] Peg Fix Femoral Distal Stry-How 3071-Z-035-547 704 - [id number] Implanted:Qty: 1 on 02/11/2022 by Mike Rangel MD at [facility] Left: Knee [facility] [id number] 05/18/2026 5575-X-000 / / [id number] Cement Bone Surg Simplex Radiopq Stry-How 4279-4-545-114 092 - [id number] Implanted:Qty: 1 on 02/11/2022 by Mike Rangel MD at [facility] Left: Knee [facility] 05/09/2024 6191-1-010 / / Description:LOT # [id number] Cement Bone Surg Simplex Radiopq Stry-How 3473-6-928-114 092 - [id number] Implanted:Qty: 1 on 02/11/2022 by Mike Rangel MD at [facility] Left: Knee [facility] 05/09/2024 6191-1-010 / / Description:LOT # [id number] Advance Directives For more information, please contact: [phone] Latest Code Status on File Code Status [...] way: discussion with patient . Care Teams Transportation Clerk Relationship Specialty Start Date End Date Long Hayes MD [address] [place] [address] PCP - General Internal Medicine 01/03/18
--- OUTSIDE RECORDS SUMMARY | 2025-09-04 15:44 | XMS_ITS | Clinical Summary ---
Author Organization [facility] Address [address] [place] [address] Care Team Providers Care Assembly Mechanic Name Role Phone Long Hayes MD Primary Care Provider [phone] Surgical History Surgery Date Site/Laterality Comments COLONOSCOPY PROCEDURE:COLONOSCOPY KNEE SURGERY Bilateral PROCEDURE:KNEE SURGERY;COMMENT:SCOPE HERNIA REPAIR PROCEDURE:HERNIA REPAIR;COMMENT:SCROTAL LIPOMA RESECTION PROCEDURE:LIPOMA RESECTION;COMMENT:ARM TONSILLECTOMY PROCEDURE:TONSILLECTOMY TOTAL KNEE ARTHROPLASTY 11/15/2019 Right PROCEDURE:TOTAL KNEE ARTHROPLASTY;COMMENT:Procedure: REPLACEMENT TOTAL KNEE; Surgeon: Mike Rangel MD; Location: [facility] Service: Orthopedics; Laterality: Right; JOINT REPLACEMENT PROCEDURE:JOINT REPLACEMENT WRIST SURGERY PROCEDURE:WRIST SURGERY;COMMENT:pt denies wrist surgery (2021) TOTAL KNEE ARTHROPLASTY 02/11/2022 Left PROCEDURE:TOTAL KNEE ARTHROPLASTY;COMMENT:Procedure: REPLACEMENT TOTAL KNEE; Surgeon: Mike Rangel MD; Location: [facility] ([facility]); Service: Orthopedics; Laterality: Left; Medical [...] Health Maintenance Due Date Last Done Comments Colorectal Cancer Screening: Colonoscopy 1960 DTaP,Tdap,and Td Vaccines (1 - Tdap) 1978 Pneumococcal Vaccine: 50+ Years (1 of 1 - PCV) 2009 Zoster Vaccines (1 of 2) 2009 Abdominal Aortic Aneurysm (AAA) Screen 09/16/2022 Cholesterol Screening (Lipid Panel) 09/16/2022 Hepatitis C Screening 09/16/2022 Social Influencers [...] this topic Medical Devices Implanted Type Area Cat Cracker Operator Device Identifier Shelf Expiration Date Model / Serial / Lot Cement Simplex P Radiopaque Full Dose Bone 10 Pack - [id number] Implanted:Qty: 1 on 11/15/2019 by Mike Rangel MD Right: Knee [employer] 07/09/2021 6191-1-010 / / [id number] Cement Simplex P Radiopaque Full Dose Bone 10 Pack - [id number] Implanted:Qty: 1 on 11/15/2019 by Mike Rangel MD Right: Knee [employer] 07/09/2021 6191-1-010 / / [id number] Component Triathlon 7 Posterior Stabilized Cemented Femoral - [id number] Implanted:Qty: 1 on 11/15/2019 by Mike Rangel MD Right: Knee [facility] 02/06/2024 5515-F-702 / / [id number] Baseplate Triathlon 8 Primary Cemented Tibial Knee - [id number] Implanted:Qty: 1 on 11/15/2019 by Mike Rangel MD Right: Knee [employer] 10/31/2023 5520-B-800 / / [id number] Insert Triathlon 8 13mm Posterior Stabilized Bearing X3 - [id number] Implanted:Qty: 1 on 11/15/2019 by Mike Rangel MD Right: Knee [employer] 10/17/2022 5532-G-813 / / [id number] Component Triathlon 10mm 35mm Symmetric X3 Ptlar Knee - [id number] Implanted:Qty: 1 on 11/15/2019 by Mike Rangel MD Right: Knee [employer] 12/24/2023 5551-G-350 / / [id number] Peg Triathlon Modular Fix Distal Femur Knee - [id number] Implanted:Qty: 1 on 11/15/2019 by Mike Rangel MD Right: Knee [employer] 07/01/2024 5575-X-000 / / [id number] Knee Fem Ps Trthln Sz 7 Lt Stry-Howm 4727-Q-512-534 743 Implanted:Qty: 1 on 02/11/2022 by Mike Rangel MD Left: Knee [employer] [id number] 10/16/2023 5515-F-701 / / [id number] Knee Tib Base Plt Trthln Sz 8 Stry-Howm 7758-R-465-631 519 Implanted:Qty: 1 on 02/11/2022 by Mike Rangel MD Left: Knee [employer] [id number] 06/09/2026 5520-B-800 / / [id number] Knee Tib Insrt Ps X3 8x13 Stry-Howm 4720-D-172-549 545 Implanted:Qty: 1 on 02/11/2022 by Mike Rangel MD Left: Knee [employer] [id number] 10/24/2022 5532-G-813 / / [id number] Knee Pat Asymmetric [id number] Stry-Howm 5653-D-516-E-2 05323 Implanted:Qty: 1 on 02/11/2022 by Mike Rangel MD Left: Knee [employer] [id number] 09/27/2026 5551-G-350 -E / / [id number] Peg Fix Femoral Distal Stry-Howm 9766-C-916-547 704 Implanted:Qty: 1 on 02/11/2022 by Mike Rangel MD Left: Knee [employer] [id number] 05/18/2026 5575-X-000 / / [id number] Cement Bone Surg Simplex Radiopq Stry-Howm 5109-1-598-114 092 Implanted:Qty: 1 on 02/11/2022 by Mike Rangel MD Left: Knee [employer] 05/09/2024 6191-1-010 / / Description:LOT # [id number] Cement Bone Surg Simplex Radiopq Stry-How 5435-8-614-114 092 Implanted:Qty: 1 on 02/11/2022 by Mike Rangel MD Left: Knee [employer] 05/09/2024 6191-1-010 / / Description:LOT # [id number] Care Teams Assembly Mechanic Relationship Specialty Start Date End Date Long Hayes MD [address] [place] [address] PCP - General Internal Medicine 01/03/18
--- OUTSIDE RECORDS SUMMARY | 2025-09-04 15:44 | XMS_ITS | Data Portability ---
Author Organization [facility] Address [address] [place] [phone] Care Team Providers Care Blending Line Attendant Name Role Phone SILVERIO REICH Referring Provider [phone] Assessment Encounter Date Assessment Date Assessment LastModified [...] 3 view 2023 024 [email or web address] [facility], [address], [place], [address], 4 13:22:48 XR, knee, 3 view 2023 024 [email or web address] [facility], [address], [place], [address], 4 13:22:48 Medication Orders amoxicillin [address] [facility] [id number], [address], [place], [address], 08:50:48 Patient TargetsNo targets recorded. Patient Instructions Encounter Date Encounter Id Patient Instructions Last Modified By Organization Details Last Modified Time 12/15/2023 [id number] Bilateral knee x-rays reveal well-seated well-positioned bilateral total knee arthroplasties without sign of loosening. No acute bony abnormality. Not available 12/15/2023 08:48:11 Reason for Referral None Reported. Problems Name Problem SNOMED Code Status Onset Date Resolution Date Notes Provider Name and Address Organization Details Recorded Time Arthritis of right knee joint 56165082897 52161 Active 2018 Arthritis of knee, right Not Available [facility] 5 00:34:45 Disorder of right sciatic nerve 68874841034 9102 Active 2019 Right sided sciatica Not Available [facility] 5 00:28:48 Problem Notes None recorded. Procedures Surgical History Date Name Laterality Status Provider Name and Address Organization Details Recorded Time total knee replacement completed [facility], 12/15/2023 10:19:00 repair of meniscus completed [facility]23 10:19:15 Imaging Results None recorded. [...] Updated DateTime 12/15/2023 182.88 cm 30.5 kg/m2 939190.[address] [facility], 12/15/2023 10:17:30 Social History None recorded. Functional [...] Anemia N Brain Injury N Heart Attack (CO) N Osteopenia N Diabetes N Bleeding Disorder N Seizures/Epilepsy N AIDS/HIV N Congestive Heart Failure (CHF) N Asthma N Amputation N Reflux/GERD N Sleep Apnea N Aneurysm N Hepatitis N Heart Disease N Pulmonary Embolism N Hypertension N Osteoporosis N Immunizations Vaccine Type Date Status Note Provider Nam e and Address Organization Details Recorded Time COVID-19, mRNA, LNP-S, PF, 100 mcg/0.5mL dose or 50 mcg/0.25mL dose 12/15/2020 completed Not Available [facility] 5 05:37:15 COVID-19, mRNA, LNP-S, PF, 100 mcg/0.5mL dose or 50 mcg/0.25mL dose 08/28/2021 completed Not Available [facility] 5 05:37:15 COVID-19, mRNA, LNP-S, PF, 100 mcg/0.5mL dose or 50 mcg/0.25mL dose 01/12/2021 completed Not Available [facility] 5 05:37:15 Past Encounters Encounter ID Performer Location Encounter Start Date Encounter Closed Date Diagnosis/Indication Diagnosis SNOMED-CT Code Diagnosis ICD10 Code Diagnosis IMO Codes Diagnosis Note [id number] ABDI C[facility] [address] [place] [address] 12/15/2023 08:21:00 12/15/2023 08:51:06 History of right total knee replacement 5591770597 233344 Z96.651 History of left total knee replacement 7804456857 383685 Z96.652 Health Concerns Section Related Observation LastModified by Organization Detai ls LastModified Time None Recorded Concern Status LastModified by Organization Details LastModified Time None Recorded Advance Directives Directive None Recorded Payers Insurance Date Sequence Insurance Name Policy Number Policy Alexander Covered Member ID Alexander Member ID Guarantor Name 04/11/[address] [facility] [id number] Ernie Cortés [id number] Notes Date Note Type Note Provider [...] acute bony abnormality. SINA AGGARWAL PA-C [address] [facility] [address], [place], [address], [place] [facility], 12/15/2023 08:51:10
== END 2025-09-04 13:15 | disposition home or self-care (01) ==
LOC: HO.HSM 12:44
PROVIDERS: PCP Internal Medicine; Visit Provider Registered Nurse
DX: M50.90 Cervical disc disorder, unspecified, unspecified cervical region (principal); M47.812 Spondylosis without myelopathy or radiculopathy, cervical region; M54.2 Cervicalgia; M43.10 Spondylolisthesis, site unspecified
CPT/HCPCS: 99214

== ENCOUNTER → 2025-09-04 12:44 | Outpatient (BNVA) | payer MEDICARE, SELFPAY | PROVIDERS: PCP Internal Medicine; Visit Provider Registered Nurse | DX: M50.90 Cervical disc disorder, unspecified, unspecified cervical region (principal); M47.812 Spondylosis without myelopathy or radiculopathy, cervical region; M43.12 Spondylolisthesis, cervical region | CPT/HCPCS: 99212 ==